=== PATIENT | female | born 1930 | race Caucasian/White ===

== ENCOUNTER 2016-10-10 10:00 | Emergency (ER) | payer MEDICARE, OTHER ==
[~2016-10-10 10:00] MED LIST: ALEVE220 MG PO; ASAB PO; AZOR1 TA1 PO; BYSTOLIC10 MG PO; COSAMIN DS1 TAB PO; CRESTOR10 PO; GLUCCHONDR PO; LOM PO; METHIMAZOLE5 MG PO; MULTIPLE VIT PO; MULTIVITAMI1 PO; PEP20 PO; PEPCID COMPLETE PO; REFRESH OPH; REST15 PO; TAPAZOLE5 MG PO; TEKTURNA300 MG PO; TRIBENZOR 40-51 EACH PO; VOLTAREN1 % TOP; WELCHOL 625 MG625 MG PO
[2016-10-10 10:16] LABS: BASOPHILS 0.2 %; BASOPHILS ABSOLUTE 0.02 10/3/uL (0.0-0.16); EOSINOPHILS 0.6 %; EOSINOPHILS ABSOLUTE 0.06 10/3/uL (0.0-0.53); ER CBC TAT 0 Hrs 09 Mins; HEMOGLOBIN 10.6 g/dL (12.0-16.0); IMMATURE GRANULOCYTES 1.2 %; LYMPHOCYTES 7.6 %; MEAN CORPUS HGB CONC 33.4 g/dL (32.0-36.0); MEAN CORPUSCULAR HEMOGLOB 34.1 pg (26.0-34.0); MEAN CORPUSCULAR VOLUME 101.9 fL (80-100); MEAN PLATELET VOLUME 9.4 fL (9.2-13.0); MONOCYTES 4.7 %; MONOCYTES ABSOLUTE 0.49 10/3/uL (0.21-1.20); NEUTROPHILS 85.7 %; NEUTROPHILS ABSOLUTE 8.99 10/3/uL (2.02-8.40); PLATELET COUNT 194 10/3/uL (150-400); RBC DISTRIBUTION WIDTH 13.2 % (12.0-16.0); WHITE BLOOD CELLS 10.5 10/3/uL (4.5-10.5)
[2016-10-10 10:24] LABS: HEMATOCRIT 31.7 % (36.0-48.0); IMMATURE GRANULOCYTES ABSOLUTE 0.13 10/3/uL (0.0-0.11); MANUAL DIFF NO %; RED CELL COUNT 3.11 10/6/uL (4.0-5.6)
[2016-10-10 10:30] LABS: INFLUENZA A SCREEN NEGATIVE (NEGATIVE); INFLUENZA B SCREEN NEGATIVE (NEGATIVE)
[2016-10-10 10:31] LABS: A/G RATIO 0.9 (0.7-1.9); ALKALINE PHOSPHATASE 73 U/L (45-117); BUN (BLOOD UREA NITROGEN) 36 MG/DL (6-23); CALCIUM, SERUM 9.2 MG/DL (8.5-10.4); CHLORIDE, SERUM 107 MMOL/L (96-112); CO2 (CARBON DIOXIDE) 22 MMOL/L (24-34); CREATININE 1.28 MG/DL (0.55-1.02); GFR AFRICAN AMERICAN 44 ML/MIN (>=60); GFR NON AFRICAN AMERICAN 38 ML/MIN (>=60); GLOBULIN 3.4 G/DL (2.5-4.1); GLUCOSE, SERUM 105 MG/DL (60-99); POTASSIUM, SERUM 4.4 MMOL/L (3.5-5.3); SGOT(AST) 52 U/L (5-40); SGPT(ALT) 62 U/L (5-65); SODIUM, SERUM 143 MMOL/L (135-148); TOTAL BILIRUBIN 0.9 MG/DL (0-1.2); TOTAL PROTEIN 6.4 G/DL (6.0-8.5); TROPONIN I 0.02 NG/ML (<0.05)
[2016-10-10 10:36] LABS: ASCORBIC ACID (UR NOT ORDER) NEG (NEG); BILIRUBIN, URINE NEGATIVE (NEG); ER URINALYSIS TAT 0 Hrs 19 Mins; KETONE, URINE NEGATIVE (NEG); LEUKOCYTE ESTERASE(NOT OR NEG (NEG); NITRITE (URINE) NEG (NEG); WBC (NOT ORDERED) (RFLEX) 1 (0-5)
[2016-10-10 10:39] LABS: BAND NEUTROPHILS 18 %; ER DIFF TAT 0 Hrs 32 Mins; LYMPHOCYTES 6 %; LYMPHOCYTES ABSOLUTE (CALC) 0.63 10/3/uL (0.67-4.30); MACROCYTES 1+ (5-10/OIF) (0-5/OIF); MONOCYTES 3 %; MONOCYTES ABSOLUTE (CALC) 0.32 10/3/uL (0.21-1.20); NEUTROPHILS ABSOLUTE (CALC) 9.56 10/3/uL (2.02-8.40); PLATELET ESTIMATE ADQ (ADEQUATE); SEGMENTED NEUTROPHIL (0) 73 %; TOTAL NUCLEATED CELLS 100
[2016-10-10] MEDS ORDERED: 8 HOUR650 MG PO (11:47)
[2016-10-10] MEDS ORDERED: MULTIVIT/MIN PO (11:47)
[2016-10-10] MEDS ORDERED: ASAB PO (11:47)
[2016-10-10] MEDS ORDERED: BYSTOLIC20 MG PO (11:48)
[2016-10-10] MEDS ORDERED: GLUCCHONDR PO (11:48)
[2016-10-10] MEDS ORDERED: TRIBENZOR 40-11 EAC1 PO (11:48)
[2016-10-10] MEDS ORDERED: REST15 PO (11:49)
[2016-10-10] MEDS ORDERED: LIPITOR10 PO (11:49)
[2016-10-10] MEDS ORDERED: MURO1285% OPH (11:49)
[2016-10-10] MEDS ORDERED: LOM PO (11:49)
[2016-10-10] MEDS ORDERED: LOTEMAX OPH SUSP5 ML OPH (11:49)
[2017-01-27] MEDS ORDERED: LOVENOX40 SC (14:20)
[2017-01-27] MEDS ORDERED: NYS500UDL PO (14:21)
[2017-01-27] MEDS ORDERED: [UNRECOGNIZED DRUG - OTHER] TOP (14:23)
[2017-01-27] MEDS ORDERED: VANCO500 IV (14:24)
[2017-01-27] MEDS ORDERED: 8 HOUR650 MG PO (14:28)
[2017-01-27] MEDS ORDERED: MAALOX MAX PO (14:29)
[2017-01-27] MEDS ORDERED: NORV10 PO (14:30)
[2017-01-27] MEDS ORDERED: BEN25UDL PO (14:31)
[2017-01-27] MEDS ORDERED: KEPPRA500 PO (14:32)
[2017-01-27] MEDS ORDERED: KEPPRA250 PO (14:32)
[2017-01-27] MEDS ORDERED: MELA3 PO (14:33)
[2017-01-27] MEDS ORDERED: MOMUD PO (14:33)
[2017-01-27] MEDS ORDERED: MACROBID PO (14:34)
[2017-01-27] MEDS ORDERED: B1100 PO (14:35)
== END 2016-10-10 12:30 | disposition home or self-care (01) ==
LOC: ER 10:00
PROVIDERS: Hospitalist
DX: I13.2 Hypertensive heart and chronic kidney disease with heart failure and with stage 5 chronic kidney disease, or end stage renal disease (principal); I50.9 Heart failure, unspecified; N18.9 Chronic kidney disease, unspecified; F32.9 Major depressive disorder, single episode, unspecified; I25.10 Atherosclerotic heart disease of native coronary artery without angina pectoris; Z95.5 Presence of coronary angioplasty implant and graft; Z85.3 Personal history of malignant neoplasm of breast; Z90.710 Acquired absence of both cervix and uterus; Z91.041 Radiographic dye allergy status; Z88.0 Allergy status to penicillin; Z88.5 Allergy status to narcotic agent; Z88.8 Allergy status to other drugs, medicaments and biological substances; Z88.6 Allergy status to analgesic agent; Z79.82 Long term (current) use of aspirin; Z79.899 Other long term (current) drug therapy
CPT/HCPCS: 71010; 80053; 81001; 83880; 84484; 85025; 87040; 87804; 93005; 99285; A9270-GY

== ENCOUNTER 2016-10-16 16:34 | Inpatient (IN) | payer MEDICARE, OTHER ==
--- NOTE | ~2016-10-16 | HP ---
History And Physical [place] [address] [facility] [place]. [address] NAME: PATRICIA CLARK : 30 STATUS : ADM IN [facility]#: [id number] AGE: 86 ADM/REG DATE : 10/16/16 MR#: [id number] REPORT SERV DATE: 10/17/16 DICTATED BY: MARIA GUADALUPE TRAN DATE: 10/16/16 REPORT STATUS : Draft TRANSCRIBED BY: BILLY DATE: 10/16/16 DATE OF ADMISSION: 10/16/2016 CHIEF COMPLAINT: Dark stools and shortness of breath. Dark stools over the last few days with shortness of breath over the last 2 weeks. HISTORY OF PRESENT ILLNESS: The patient is an 86-year-old female with past medical history of coronary artery disease, CABG history, reflux, prior Clostridium difficile colitis with resultant colectomy and reversal, who presents after having shortness of breath over the last 2 weeks. Approximately, 1 week ago, came to the emergency room, was thought to be slightly volume overloaded and was given 3 doses of diuretics and then had resultant voluminous diarrhea. Diarrhea has continued and has returned into dark melenic-type stools. On arrival, the patient was noted to be hypotensive at 90s/50s and complaining of still continued shortness of breath, has still not resolved, and has had drop in her H and H from last week to this week. Symptoms of discomfort have been constant, moderate in severity. Epigastric pain that is dull, nonradiating, no nausea, fevers, headaches, but does have cold feeling and shortness of breath with exertion, which is improved at rest, but worsened with exertion, symptoms are still currently present, but she is still reporting has black watery stools. REVIEW OF SYSTEMS: GENERAL: No fevers, but does have chills. EYES: No eye pain or visual changes. ENT: No ear pain or congestion. NEURO: No headache or confusion, but mild dizziness. SKIN: No rashes or bruising. Does have dry skin. RESPIRATORY: Does have shortness of breath, dyspnea on exertion. No cough. CV: No chest pain or palpitations. GI: No nausea or vomiting. Does have diarrhea with dark stool and abdominal discomfort. : No dysuria or hematuria. MUSCULOSKELETAL: No myalgias, arthralgias, above baseline. ENDO: Slightly increased fatigue, no polyuria. HEME: No bleeding on skin or bruising. IMMUNOLOGIC: No rhinorrhea. PSYCH: No anxiety or confusion, but does have appropriate depression after recent loss of her . 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 Traumatic right ankle fracture with MRSA infection, coronary artery bypass in 2002, hypertension, lumbar degenerative changes, Graves disease, acalculous cholecystitis requiring cholecystectomy, breast cancer with resection, major depression. PAST SURGICAL HISTORY: Bilateral mastectomy, hysterectomy, coronary artery bypass, hemorrhoidectomy, colectomy, ileostomy with reversal cholecystectomy, right knee History And Physical [address] [address] NAME: PATRICIA CLARK : 30 STATUS : ADM IN [facility]#: [id number] AGE: 86 ADM/REG DATE : 10/16/16 MR#: [id number] REPORT SERV DATE: 10/17/16 DICTATED BY: MARIA GUADALUPE TRAN DATE: 10/16/16 REPORT STATUS : Draft TRANSCRIBED BY: BILLY DATE: 10/16/16 arthroplasty, right ankle surgery, left third digit incision and drainage. 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 No alcohol or illicits. Quit smoking in . Son at bedside. FAMILY HISTORY: Uterine cancer, hypertension. ALLERGIES: PENICILLINS, IV CONTRAST, CODEINE, TRAMADOL, ZYVOX. HOME MEDICATIONS: Tylenol, aspirin, Lipitor, Lomotil, glucosamine, Lotemax, multivitamin, Bystolic, Tribenzor, Claire, and Restoril. PHYSICAL EXAMINATION: VITAL SIGNS: The patient's blood pressure 95/82, improved to 120/70; temperature 98; pulse 77; respirations 16; and O2 sats 98%. GENERAL: Currently in no acute distress. Slightly pale, but well developed, well nourished. EYES: No scleral icterus. Pale conjunctivae. ENT: Slightly dry mucous membranes. Tongue midline. RESPIRATORY: Clear to auscultation in anterior lung mcginnis. Mild coarse breath sounds in bilateral lower lung mcginnis. No stridor. CV: Regular rate. No rubs. No pedal edema. No JVD. Capillary refill less than 2 seconds. GI: Soft, nontender although reports tenderness in epigastric. No reproducible tenderness or direct tenderness appreciated to light palpation. Slightly reproducible on deep palpation. Negative fluid wave. No hepatomegaly. : Deferred. MUSCULOSKELETAL: Moves all extremities x4. SKIN: Warm, dry. Pale with mild tenting. LYMPH: No cervical lymphadenopathy. No pedal edema. HEME: No bleeding or bruising. NEURO: Alert and oriented. Moves all extremities x4. PSYCH: Appropriate mood and affect. Tearful when talking about . EKG: Normal sinus rhythm with incomplete right bundle, rate 74, QTc of 441, T-wave inversions noted in prior EKG in May 2016 with right bundle branch block, also in 2016. However, no PVCs appreciated as previously noted. Echocardiogram: EF 60%, normal RV size, no regional wall motion. Mild left atrial enlargement. Aortic valve sclerosis without stenosis. Mild to moderate mitral and moderate tricuspid valve regurgitation. Trace pericardial effusion. PERTINENT LABS: CBC: WBC count 11.9, H and H 8.8 and 36.6, MCV 101.5, platelets 311, INR 1.1. CMP: Sodium 139, potassium 5.9, chloride 109, bicarb 19, BUN and creatinine 88 and 2.32, glucose 125, calcium 9.1. LFTs within normal limits. ASSESSMENT AND PLAN: History And Physical [address] [address] NAME: PATRICIA CLARK : 30 STATUS : ADM IN [facility]#: [id number] AGE: 86 ADM/REG DATE : 10/16/16 MR#: [id number] REPORT SERV DATE: 10/17/16 DICTATED BY: MARIA GUADALUPE TRAN DATE: 10/16/16 REPORT STATUS : Draft TRANSCRIBED BY: MODL DATE: 10/16/16 1. Gastrointestinal bleed. 2. Hypotension. 3. Above knee injury. 4. Dyspnea. 5. Right bundle branch block with metabolic acidosis. PLAN: 1. For GI bleed, PPI drip. Serial H and H. Does have complex GI history. We will ask Dr. Sinclair to evaluate positive diarrhea history, acute on chronic episodes, unclear if exacerbated by hypotension due to volume depletion. 2. Hypotension, clinically volume depleted, responded fairly quickly to low doses of IV fluids, did have symptomatic dizziness, which is slowly improving. We will hold blood pressure medications at this time and continue to reassess on cardiac TOE. ER has discussed case and has made ICU aware of the patient in the presence of GI bleed, hypotension, family also updated. 3. Above-knee injury. Stopped ERIC inhibitor or ARB and hydrochlorothiazide, has taken 3 doses of Lasix, presumptive volume overload with elevated BNP, but currently low blood pressure, could also be confounding factor and voluminous output with diarrhea, sees Dr. Pedraza, Nephrology, and as the patient has already contacted Dr. Pedraza's clinic this week, we will consult the presence of SHERYL for additional optimization although multifactorial component. We will continue to reassess. 4. Dyspnea x2 weeks, unclear. We will check flu, strep Legionella although anemic currently. Symptoms were occurring prior to this acute episode of anemia. 5. Right bundle branch block, chronic, follows with Dr. Fiore. 6. Metabolic acidosis. Check Tylenol, salicylate, and lactate levels. 7. Hyperkalemia. Calcium gluconate given in emergency room. Stop ARBs, DuoNebs, and monitor. No peaked T-waves appreciated. I did have supplemental potassium given earlier last week, which could be confounding factor. DDN/MODL Maria Guadalupe Tran MD / [phone]
--- NOTE | ~2016-10-16 | CN ---
Consultation Report [address]. [address] NAME: PATRICIA CLARK : 30 STATUS : ADM IN PAT#: [id number] AGE: 86 ADM/REG DATE : 10/16/16 MR#: [id number] REPORT SERV DATE: 10/17/16 DICTATED BY: EFREN MCALLISTER DATE: 10/17/16 REPORT STATUS : Draft TRANSCRIBED BY: MODL DATE: 10/17/16 CONSULTATION NOTE DATE OF CONSULTATION: 10/17/2016 HISTORY OF PRESENT ILLNESS: This is an 86-year-old white female, admitted with melena, anemia, and mild nausea. Hemoglobin AA dropped to 7, now has been given a unit of packed cells. Minimal abdominal discomfort. No GERD, no dysphagia. History of C diff with subtotal colectomy, she had initial colostomy that was reversed, history corner artery disease, status post CAB, history of hypertension, history of DJD, history of Graves disease, status post breast cancer. She has had cholecystectomy and hysterectomy. SOCIAL HISTORY: Negative EtOH or nicotine. FAMILY HISTORY: Negative for colon cancer. LABORATORY DATA: INR 1.1. Platelet count 311,000. PAST MEDICAL HISTORY: Colon polyps. PHYSICAL EXAMINATION: GENERAL: Elderly frail white female, alert. HEENT: Anicteric. NECK: Negative. CHEST: Clear to percussion. HEART: Regular rate and rhythm without murmur, rubs, or gallop. ABDOMEN: Soft and nontender at present. Bowel sounds active. EXTREMITIES/NEUROLOGIC: Grossly intact. ASSESSMENT: 1. Gastrointestinal bleed, dark stools, anemia, and nausea. 2. Acute kidney insufficiency. 3. Coronary disease status post CAB. 4. Hypertension. 5. Degenerative joint disease. 6. Graves disease. 7. History of breast cancer. SUGGESTION: 1. We will schedule for EGD. 2. Continue follow up H and Hs p.r.n. transfusions. 3. PPI drip. 4. We will follow with you. Thank your for the consultation. Consultation Report [address]. [address] NAME: PATRICIA CLARK : 30 STATUS : ADM IN PAT#: [id number] AGE: 86 ADM/REG DATE : 10/16/16 MR#: [id number] REPORT SERV DATE: 10/17/16 DICTATED BY: EFREN MCALLISTER DATE: 10/17/16 REPORT STATUS : Draft TRANSCRIBED BY: EMIRL DATE: 10/17/16 DC/BILLY Efren Mcallister M.D. / [id number] CC: Cindy Pollard M.D.
--- NOTE | ~2016-10-16 | IDS ---
Interim Discharge Summary [facility] [address] [place]. [address] NAME: PATRICIA CLARK : 30 STATUS : ADM IN [facility]#: [id number] AGE: 86 ADM/REG DATE : 10/16/16 MR#: [id number] REPORT SERV DATE: 10/22/16 DICTATED BY: DATE: REPORT STATUS : Draft TRANSCRIBED BY: MODL DATE: 10/22/16 ADMISSION DATE: 10/16/2016 DISCHARGE DATE: INTERIM DISCHARGE DIAGNOSES: 1. Acute gastrointestinal bleed with melena. 2. Acute blood loss anemia. 3. Dyspnea. 4. Acute kidney injury. 5. Urinary tract infection. 6. Malnutrition. 7. History of Clostridium difficile. 8. Right bundle-branch block, that is chronic. CONSULTING PHYSICIANS: Include Dr. Arpan Sinclair with Gastroenterology. IMAGIN. Portable chest x-ray is negative for acute cardiopulmonary process. 2. CT of the abdomen and pelvis which did not demonstrate any etiology for the patient's GI bleeding. PROCEDURES: The patient has a total of three upper endoscopies since admission, two performed by Dr. Arpan Sinclair, the first showing two ulcers in the duodenal bulb, they were crated, however, they were not bleeding at that time. During the second endoscopy, however, they were bleeding. It was very difficult for him to stop the bleeding. He has multiple methods including epinephrine injections, cauterization, and finally he placed two clips, which stopped the bleeding. The patient was returned to the floor. She did well for about 24 hours and then started having melena again with a decrease in her H and H. She was taken back to the endoscopy suite today with Dr. Colon who is on-call for Dr. Sinclair. She was unable to stop the bleeding. She placed four more clips, as well as injected with epinephrine and tried cauterization. None of the above worked, so the patient was sent to interventional radiology. She underwent a mesenteric arteriogram performed by Dr. Hernandez. He placed a sheath that successfully stopped the bleeding. For full H and P, please refer to Dr. Bunch's dictation on 10/16/2016. HOSPITAL COURSE: There was not much to add other than the interventions above. The patient has had multiple transfusions. She is receiving q.6 hour H and Hs. Transfusion parameters include one unit of packed red blood cells for hemoglobin less than 8 with two units of packed red blood cells for hemoglobin less than 7. Her last hemoglobin prior to transfer to CV ICU was 8.4 this morning. Thank you to the envelope cutter for taking care of this patient during her ICU stay. We will resume care when she is transferred to the floor. Interim Discharge Summary [place] [address] [place]. [address] NAME: PATRICIA CLARK : 30 STATUS : ADM IN [facility]#: [id number] AGE: 86 ADM/REG DATE : 10/16/16 MR#: [id number] REPORT SERV DATE: 10/22/16 DICTATED BY: DATE: REPORT STATUS : Draft TRANSCRIBED BY: MODDelroy DATE: 10/22/16 ELIF/BILLY Hua Kaufman NP / [id number] CC: MD Rubén Melissa M.D.
--- NOTE | ~2016-10-16 | DS ---
Discharge Summary [facility] [address] [place]. [address] NAME: PATRICIA CLARK : 30 STATUS : DIS IN PAT#: [id number] AGE: 86 ADM/REG DATE : 10/16/16 MR#: [id number] REPORT SERV DATE: 10/29/16 DICTATED BY: ARIES BYRD DATE: 10/28/16 REPORT STATUS : Draft TRANSCRIBED BY: MODL DATE: 10/28/16 ADMISSION DATE: 10/16/2016 DISCHARGE DATE: 10/28/2016 PRINCIPAL DIAGNOSIS: Acute upper gastrointestinal bleed secondary to duodenal ulcer with acute blood loss anemia. SECONDARY DIAGNOSES: Acute kidney injury, hypotension due to hypovolemic shock, transient metabolic acidosis, anasarca, and hypoalbuminemia. PRESENT ILLNESS: Please see Dr. Bunch's dictation on 10/16/2016. HOSPITAL COURSE: Please see Hua Kaufman' interim summary on 10/22/2016. SUBSEQUENT HOSPITAL COURSE: The patient had to be transferred to the ICU for mesenteric angiography for embolization of the bleeding duodenal vessel. This was successful. She was in the ICU for a couple of days. She was volume resuscitated, was able to be transferred to the floor where she tolerated physical therapy well. Her p.o. intake improved. She still had issues with anasarca due to hypoalbuminemia. This was felt to be secondary to her acute illness, not to malnutrition per se, as intake actually had improved and she had lost no weight prior to her acute illness. She was able to be transmitted to rehabilitation center at [facility] on 10/28/2016 where she anticipated that she would do well. Iron studies have been satisfactory. Blood counts will be checked periodically. She will follow up with Dr. Rubén Wheat following discharge and Dr. Arpan Sinclair in six to eight weeks. TIME SPENT: Greater than 30 minutes were spent on the care of this patient on discharge planning on discharge day. GERALD/BILLY Aries Byrd M.D. / [id number] CC: Cindy Lei M.D.
--- NOTE | ~2016-10-16 | EGD ---
EGD REPORT [facility] [address] [place] [address] NAME: PATRICIA BACON : 30 STATUS : ADM IN PAT#: [id number] AGE: 86 ADM/REG DATE : 10/16/16 MR#: [id number] REPORT SERV DATE: 10/19/16 DICTATED BY: EFREN MCALLISTER DATE: 10/19/16 REPORT STATUS : Draft [facility]: [facility] DATE: 10/19/16 Endoscopy Center Patient Name: Patricia Bacon Date of : 1930 Attending MD: EFREN MCALLISTER MD Procedure Date No Time: 10/19/2016 Procedure: Upper GI endoscopy Indications: Anemia, Melena Medicines: General Anesthesia Complications: No immediate complications. Procedure: After obtaining informed consent, the endoscope was passed under direct vision. Throughout the procedure, the patient's blood pressure, pulse, and oxygen saturations were monitored continuously. The GIF H190 [id number] was introduced through the mouth, and advanced to the third part of duodenum. The upper GI endoscopy was accomplished without difficulty. The patient tolerated the procedure. Findings: The examined esophagus was normal. Red blood was found in the gastric fundus, in the gastric body and in the gastric antrum. Two spurting cratered duodenal ulcers with a visible vessel were found in the duodenal bulb. The largest lesion was 9 mm in largest dimension. Area was successfully injected with 10 mL of a 1:10,000 solution of epinephrine for hemostasis. Coagulation for hemostasis using bipolar probe was unsuccessful. Two hemostatic clips were successfully placed. There was no bleeding at the end of the procedure. Impression: - Normal esophagus. - Red blood in the gastric antrum, in the gastric fundus and in the gastric body. - Multiple duodenal ulcers spurting blood. Injected. Treatment not successful. Clips were placed. Recommendation: - NPO. - Continue present medications. Procedure Code(s): --- Professional --- 06742, Esophagogastroduodenoscopy, flexible, transoral; with control of bleeding, any method Diagnosis Code(s): --- Professional --- K92.2, Gastrointestinal hemorrhage, unspecified EGD REPORT [facility] [address] [place], [place] [address]. [address] NAME: PATRICIA BACON : 30 STATUS : ADM IN [facility]#: [id number] AGE: 86 ADM/REG DATE : 10/16/16 MR#: [id number] REPORT SERV DATE: 10/19/16 DICTATED BY: EFREN MCALLISTER. DATE: 10/19/16 REPORT STATUS : Draft TRANSCRIBED BY: [employer] DATE: 10/19/16 K26.4, Chronic or unspecified duodenal ulcer with hemorrhage D64.9, Anemia, unspecified K92.1, Melena CPT copyright 2013 [employer]. All rights reserved. The codes documented in this report are preliminary and upon preparation plant repairer review may be revised to meet current compliance requirements. EFREN MCALLISTER MD 10/19/2016 3:26 PM This report has been signed electronically. Number of Addenda: 0 Note Initiated On: 10/19/2016 2:34 PM Scope Withdrawal Time 0 hours 0 minutes 0 seconds [address] [place] [address]
--- NOTE | ~2016-10-16 | EGD ---
EGD REPORT [facility] [address] [address] NAME: PATRICIA BACON : 30 STATUS : ADM IN PAT#: [id number] AGE: 86 ADM/REG DATE : 10/16/16 MR#: [id number] REPORT SERV DATE: 10/17/16 DICTATED BY: EFREN MCALLISTER DATE: 10/17/16 REPORT STATUS : Draft TRANSCRIBED BY: [facility] DATE: 10/17/16 Endoscopy Center Patient Name: Patricia Bacon Date of : 1930 Attending MD: EFREN MCALLISTER MD Procedure Date No Time: 10/17/2016 Procedure: Upper GI endoscopy Indications: Anemia, Melena Medicines: as per anesthesia Complications: No immediate complications. Procedure: Pre-Anesthesia Assessment: - ASA Grade Assessment: III - A patient with severe systemic disease. After obtaining informed consent, the endoscope was passed under direct vision. Throughout the procedure, the patient's blood pressure, pulse, and oxygen saturations were monitored continuously. The GIF H190 [id number] was introduced through the mouth, and advanced to the third part of duodenum. The upper GI endoscopy was accomplished without difficulty. The patient tolerated the procedure. Findings: The examined esophagus was normal. The entire examined stomach was normal. The cardia and gastric fundus were normal on retroflexion. Two cratered duodenal ulcers were found in the duodenal bulb. The largest lesion was 9 mm in largest dimension. Impression: - Normal esophagus. - Normal stomach. - Multiple duodenal ulcers. Recommendation: - Continue present medications. Procedure Code(s): --- Professional --- 03563, Esophagogastroduodenoscopy, flexible, transoral; diagnostic, including collection of specimen(s) by brushing or washing, when performed (separate procedure) Diagnosis Code(s): --- Professional --- K26.9, Duodenal ulcer, unspecified as acute or chronic, without hemorrhage or perforation D64.9, Anemia, unspecified K92.1, Melena EGD REPORT [facility] [address] [place]. [address] NAME: PATRICIA BACON : 30 STATUS : ADM IN [facility]#: [id number] AGE: 86 ADM/REG DATE : 10/16/16 MR#: [id number] REPORT SERV DATE: 10/17/16 DICTATED BY: EFREN MCALLISTER. DATE: 10/17/16 REPORT STATUS : Draft TRANSCRIBED BY: [employer] DATE: 10/17/16 CPT copyright 2013 [employer]. All rights reserved. The codes documented in this report are preliminary and upon medical coder review may be revised to meet current compliance requirements. EFREN MCALLISTER MD 10/17/2016 4:14 PM This report has been signed electronically. Number of Addenda: 0 Note Initiated On: 10/17/2016 3:37 PM Scope Withdrawal Time 0 hours 0 minutes 0 seconds [address] [facility] [place] [address]
[2016-10-16 15:10] LABS: BASOPHILS 0.3 %; BASOPHILS ABSOLUTE 0.03 10/3/uL (0.0-0.16); EOSINOPHILS 0.7 %; EOSINOPHILS ABSOLUTE 0.08 10/3/uL (0.0-0.53); ER CBC TAT 0 Hrs 03 Mins; HEMOGLOBIN 8.8 g/dL (12.0-16.0); IMMATURE GRANULOCYTES ABSOLUTE 0.59 10/3/uL (0.0-0.11); LYMPHOCYTES 16.8 %; MEAN CORPUS HGB CONC 33.1 g/dL (32.0-36.0); MEAN CORPUSCULAR HEMOGLOB 33.6 pg (26.0-34.0); MEAN CORPUSCULAR VOLUME 101.5 fL (80-100); MEAN PLATELET VOLUME 9.3 fL (9.2-13.0); MONOCYTES 5.7 %; MONOCYTES ABSOLUTE 0.68 10/3/uL (0.21-1.20); NEUTROPHILS 71.5 %; NEUTROPHILS ABSOLUTE 8.52 10/3/uL (2.02-8.40); RBC DISTRIBUTION WIDTH 13.4 % (12.0-16.0); RED CELL COUNT 2.62 10/6/uL (4.0-5.6); WHITE BLOOD CELLS 11.9 10/3/uL (4.5-10.5)
[2016-10-16 15:15] LABS: HEMATOCRIT 26.6 % (36.0-48.0); PLATELET COUNT 311 10/3/uL (150-400)
[2016-10-16 15:16] LABS: MANUAL DIFF NO %
[2016-10-16 15:23] LABS: INTERNATIONAL NORMAL RATI 1.1 UNITS (-); PARTIAL THROMBO TIME 25.2 SEC (22.5-37.2)
[2016-10-16 15:25] LABS: A/G RATIO 0.8 (0.7-1.9); ALBUMIN 2.5 G/DL (3.5-5.0); ALKALINE PHOSPHATASE 77 U/L (45-117); BUN (BLOOD UREA NITROGEN) 88 MG/DL (6-23); CALCIUM, SERUM 9.1 MG/DL (8.5-10.4); CHLORIDE, SERUM 109 MMOL/L (96-112); CO2 (CARBON DIOXIDE) 19 MMOL/L (24-34); CREATININE 2.32 MG/DL (0.55-1.02); GFR AFRICAN AMERICAN 21 ML/MIN (>=60); GFR NON AFRICAN AMERICAN 18 ML/MIN (>=60); GLOBULIN 3.3 G/DL (2.5-4.1); GLUCOSE, SERUM 125 MG/DL (60-99); POTASSIUM, SERUM 5.9 MMOL/L (3.5-5.3); SGOT(AST) 33 U/L (5-40); SGPT(ALT) 54 U/L (5-65); SODIUM, SERUM 139 MMOL/L (135-148); TOTAL BILIRUBIN 0.3 MG/DL (0-1.2); TOTAL PROTEIN 5.8 G/DL (6.0-8.5)
[2016-10-16 15:36] LABS: BAND NEUTROPHILS 2 %; ER DIFF TAT 0 Hrs 29 Mins; LYMPHOCYTES 12 %; LYMPHOCYTES ABSOLUTE (CALC) 1.43 10/3/uL (0.67-4.30); MONOCYTES 4 %; MONOCYTES ABSOLUTE (CALC) 0.48 10/3/uL (0.21-1.20); SEGMENTED NEUTROPHIL (0) 82 %; TOTAL NUCLEATED CELLS 100
[2016-10-16 15:38] LABS: POLYCHROMASIA 1+ (2-5/OIF) (0-1/OIF)
[2016-10-16 15:45] LABS: PLATELET ESTIMATE ADQ (ADEQUATE); POIKILOCYTOSIS 1+ (5-10/OIF) (0-5/OIF)
[2016-10-16 15:47] LABS: MACROCYTES 1+ (5-10/OIF) (0-5/OIF)
[~2016-10-16 16:34] MED LIST changes: +8 HOUR650 MG PO; +BYSTOLIC20 MG PO; +LIPITOR10 PO; +LOTEMAX OPH SUSP5 ML OPH; +MULTIVIT/MIN PO; +MURO1285% OPH; +TRIBENZOR 40-11 EAC1 PO
[2016-10-16 22:54] LABS: HEMATOCRIT 23.9 % (36.0-48.0); HEMOGLOBIN 7.8 g/dL (12.0-16.0)
[2016-10-16 23:17] LABS: CALCIUM, SERUM 8.5 MG/DL (8.5-10.4); CHLORIDE, SERUM 114 MMOL/L (96-112); CO2 (CARBON DIOXIDE) 16 MMOL/L (24-34); CREATININE 1.99 MG/DL (0.55-1.02); GFR AFRICAN AMERICAN 26 ML/MIN (>=60); GFR NON AFRICAN AMERICAN 22 ML/MIN (>=60); GLUCOSE, SERUM 148 MG/DL (60-99); POTASSIUM, SERUM 5.3 MMOL/L (3.5-5.3); SODIUM, SERUM 142 MMOL/L (135-148); TROPONIN I <0.02 NG/ML (<0.05)
[2016-10-16 23:19] LABS: BUN (BLOOD UREA NITROGEN) 76 MG/DL (6-23); ULTRASENSITIVE TSH 0.637 MCIU/ML (0.358-3.740)
[2016-10-16 23:57] LABS: PROCALCITONIN 0.25 ng/mL (<0.5)
[2016-10-17 07:23] LABS: ASCORBIC ACID (UR NOT ORDER) NEG (NEG); BILIRUBIN, URINE NEGATIVE (NEG); KETONE, URINE NEGATIVE (NEG); LEUKOCYTE ESTERASE(NOT OR LARGE (NEG)
[2016-10-17 07:30] LABS: WBC (NOT ORDERED) (RFLEX) > 182 (0-5)
[2016-10-17 07:33] LABS: HEMOGLOBIN 7.1 g/dL (12.0-16.0); MANUAL DIFF YES %; MEAN CORPUS HGB CONC 32.3 g/dL (32.0-36.0); MEAN CORPUSCULAR VOLUME 102.3 fL (80-100); PLATELET COUNT 215 10/3/uL (150-400); RBC DISTRIBUTION WIDTH 13.6 % (12.0-16.0); RED CELL COUNT 2.15 10/6/uL (4.0-5.6); WHITE BLOOD CELLS 10.9 10/3/uL (4.5-10.5)
[2016-10-17 07:50] LABS: A/G RATIO 0.8 (0.7-1.9); ACETAMINOPHEN LEVEL (TYLENOL) 3.5 MCG/ML (10.0-20.0); ALBUMIN 2.2 G/DL (3.5-5.0); BUN (BLOOD UREA NITROGEN) 64 MG/DL (6-23); CALCIUM, SERUM 8.4 MG/DL (8.5-10.4); CHLORIDE, SERUM 115 MMOL/L (96-112); CO2 (CARBON DIOXIDE) 18 MMOL/L (24-34); CREATININE 1.66 MG/DL (0.55-1.02); GFR AFRICAN AMERICAN 32 ML/MIN (>=60); GFR NON AFRICAN AMERICAN 28 ML/MIN (>=60); GLOBULIN 2.9 G/DL (2.5-4.1); POTASSIUM, SERUM 5.3 MMOL/L (3.5-5.3); SGOT(AST) 27 U/L (5-40); SGPT(ALT) 42 U/L (5-65); SODIUM, SERUM 143 MMOL/L (135-148); TOTAL BILIRUBIN 0.4 MG/DL (0-1.2); TOTAL PROTEIN 5.1 G/DL (6.0-8.5); TROPONIN I <0.02 NG/ML (<0.05)
[2016-10-17 07:51] LABS: ALKALINE PHOSPHATASE 65 U/L (45-117); GLUCOSE, SERUM 94 MG/DL (60-99); SALICYLATE < 1.7 MG/DL (-)
[2016-10-17 07:57] LABS: BAND NEUTROPHILS 3 %; IMMATURE GRANS ABSOLUTE (CALC) 0.11 10/3/uL (0.0-0.11); LYMPHOCYTES 16 %; LYMPHOCYTES ABSOLUTE (CALC) 1.74 10/3/uL (0.67-4.30); METAMYELOCYTES 1 %; MONOCYTES 4 %; MONOCYTES ABSOLUTE (CALC) 0.44 10/3/uL (0.21-1.20); NEUTROPHILS ABSOLUTE (CALC) 8.61 10/3/uL (2.02-8.40); SEGMENTED NEUTROPHIL (0) 76 %; TOTAL NUCLEATED CELLS 100
[2016-10-17 07:58] LABS: PLATELET ESTIMATE ADQ (ADEQUATE); STOMATOCYTES 1+ (3-10/OIF) (0-2/OIF); TEARDROP SHAPED RBCS FEW (3-10/OIF)
[2016-10-17 18:55] LABS: HEMATOCRIT 27.9 % (36.0-48.0); HEMOGLOBIN 8.7 g/dL (12.0-16.0)
[2016-10-18 02:14] LABS: HEMATOCRIT 26.6 % (36.0-48.0); HEMOGLOBIN 9.1 g/dL (12.0-16.0)
[2016-10-18 09:05] LABS: HEMOGLOBIN 7.7 g/dL (12.0-16.0)
[2016-10-18 15:46] LABS: HEMOGLOBIN 9.6 g/dL (12.0-16.0)
[2016-10-18 20:42] LABS: HEMATOCRIT 28.2 % (36.0-48.0); HEMOGLOBIN 9.6 g/dL (12.0-16.0)
[2016-10-19 01:43] LABS: HEMOGLOBIN 8.5 g/dL (12.0-16.0); MANUAL DIFF YES %; MEAN CORPUSCULAR HEMOGLOB 30.2 pg (26.0-34.0); MEAN PLATELET VOLUME 9.4 fL (9.2-13.0); PLATELET COUNT 130 10/3/uL (150-400); RBC DISTRIBUTION WIDTH 20.4 % (12.0-16.0); RED CELL COUNT 2.81 10/6/uL (4.0-5.6); WHITE BLOOD CELLS 11.9 10/3/uL (4.5-10.5)
[2016-10-19 01:55] LABS: BUN (BLOOD UREA NITROGEN) 61 MG/DL (6-23); CALCIUM, SERUM 7.7 MG/DL (8.5-10.4); CHLORIDE, SERUM 116 MMOL/L (96-112); CO2 (CARBON DIOXIDE) 16 MMOL/L (24-34); CREATININE 1.36 MG/DL (0.55-1.02); GFR AFRICAN AMERICAN 41 ML/MIN (>=60); GFR NON AFRICAN AMERICAN 35 ML/MIN (>=60); GLUCOSE, SERUM 118 MG/DL (60-99); POTASSIUM, SERUM 5.1 MMOL/L (3.5-5.3); SODIUM, SERUM 143 MMOL/L (135-148)
[2016-10-19 02:40] LABS: ANISOCYTOSIS 1+ (5-10/OIF) (0-5/OIF); BAND NEUTROPHILS 2 %; EOSINOPHILS 1 %; EOSINOPHILS ABSOLUTE (CALC) 0.12 10/3/uL (0.0-0.53); IMMATURE GRANS ABSOLUTE (CALC) 0.36 10/3/uL (0.0-0.11); LYMPHOCYTES 17 %; LYMPHOCYTES ABSOLUTE (CALC) 2.02 10/3/uL (0.67-4.30); METAMYELOCYTES 2 %; MONOCYTES 6 %; MONOCYTES ABSOLUTE (CALC) 0.71 10/3/uL (0.21-1.20); MYELOCYTES 1 %; NEUTROPHILS ABSOLUTE (CALC) 8.69 10/3/uL (2.02-8.40); PLATELET ESTIMATE SLT DEC (ADEQUATE); SEGMENTED NEUTROPHIL (0) 71 %; TOTAL NUCLEATED CELLS 100
[2016-10-19 08:50] LABS: HEMATOCRIT 22.7 % (36.0-48.0); HEMOGLOBIN 7.3 g/dL (12.0-16.0)
[2016-10-19 12:35] LABS: HEMATOCRIT 21.2 % (36.0-48.0)
[2016-10-19 12:36] LABS: HEMOGLOBIN 6.8 g/dL (12.0-16.0)
[2016-10-20 02:10] LABS: MEAN CORPUS HGB CONC 32.4 g/dL (32.0-36.0); MEAN CORPUSCULAR HEMOGLOB 28.9 pg (26.0-34.0); MEAN CORPUSCULAR VOLUME 89.3 fL (80-100); MEAN PLATELET VOLUME 9.9 fL (9.2-13.0); NUCLEATED RED BLOOD CELLS 2.6 /100WBC (0-0); PLATELET COUNT 109 10/3/uL (150-400); RBC DISTRIBUTION WIDTH 17.4 % (12.0-16.0)
[2016-10-20 02:17] LABS: HEMATOCRIT 38.3 % (36.0-48.0); HEMOGLOBIN 12.4 g/dL (12.0-16.0); RED CELL COUNT 4.29 10/6/uL (4.0-5.6); WHITE BLOOD CELLS 16.7 10/3/uL (4.5-10.5)
[2016-10-20 02:18] LABS: MANUAL DIFF YES %
[2016-10-20 02:28] LABS: CALCIUM, SERUM 8.4 MG/DL (8.5-10.4); CHLORIDE, SERUM 119 MMOL/L (96-112); GFR AFRICAN AMERICAN 31 ML/MIN (>=60); GFR NON AFRICAN AMERICAN 27 ML/MIN (>=60); GLUCOSE, SERUM 129 MG/DL (60-99); PHOSPHORUS, SERUM 3.3 MG/DL (2.5-4.5); POTASSIUM, SERUM 5.4 MMOL/L (3.5-5.3); SODIUM, SERUM 145 MMOL/L (135-148)
[2016-10-20 02:29] LABS: CO2 (CARBON DIOXIDE) 14 MMOL/L (24-34)
[2016-10-20 02:30] LABS: BUN (BLOOD UREA NITROGEN) 80 MG/DL (6-23)
[2016-10-20 03:10] LABS: BAND NEUTROPHILS 1 %; BASOPHILS 1 %; BASOPHILS ABSOLUTE (CALC) 0.17 10/3/uL (0.0-0.16); EOSINOPHILS 1 %; EOSINOPHILS ABSOLUTE (CALC) 0.17 10/3/uL (0.0-0.53); IMMATURE GRANS ABSOLUTE (CALC) 0.67 10/3/uL (0.0-0.11); LYMPHOCYTES 8 %; LYMPHOCYTES ABSOLUTE (CALC) 1.34 10/3/uL (0.67-4.30); METAMYELOCYTES 2 %; MONOCYTES 4 %; MONOCYTES ABSOLUTE (CALC) 0.67 10/3/uL (0.21-1.20); MYELOCYTES 2 %; NEUTROPHILS ABSOLUTE (CALC) 13.69 10/3/uL (2.02-8.40); PLATELET ESTIMATE SLT DEC (ADEQUATE); SEGMENTED NEUTROPHIL (0) 81 %; TOTAL NUCLEATED CELLS 100
[2016-10-20 03:11] LABS: ANISOCYTOSIS 1+ (5-10/OIF) (0-5/OIF); POLYCHROMASIA 1+ (2-5/OIF) (0-1/OIF); TEARDROP SHAPED RBCS OCC (0-2/OIF)
[2016-10-20 03:12] LABS: GIANT PLATELET RARE
[2016-10-20 08:09] LABS: HEMOGLOBIN 11.3 g/dL (12.0-16.0); MEAN CORPUSCULAR HEMOGLOB 29.1 pg (26.0-34.0); MEAN PLATELET VOLUME 9.8 fL (9.2-13.0); PLATELET COUNT 113 10/3/uL (150-400); RBC DISTRIBUTION WIDTH 17.3 % (12.0-16.0); RED CELL COUNT 3.88 10/6/uL (4.0-5.6); WHITE BLOOD CELLS 14.2 10/3/uL (4.5-10.5)
[2016-10-20 08:11] LABS: HEMATOCRIT 32.9 % (36.0-48.0); MEAN CORPUS HGB CONC 34.3 g/dL (32.0-36.0); MEAN CORPUSCULAR VOLUME 84.8 fL (80-100)
[2016-10-20 08:13] LABS: MANUAL DIFF YES %
[2016-10-20 08:21] LABS: CALCIUM, SERUM 8.1 MG/DL (8.5-10.4); CHLORIDE, SERUM 117 MMOL/L (96-112); CREATININE 1.53 MG/DL (0.55-1.02); GFR AFRICAN AMERICAN 35 ML/MIN (>=60); GFR NON AFRICAN AMERICAN 30 ML/MIN (>=60); GLUCOSE, SERUM 134 MG/DL (60-99); PHOSPHORUS, SERUM 2.9 MG/DL (2.5-4.5); POTASSIUM, SERUM 4.5 MMOL/L (3.5-5.3); SODIUM, SERUM 144 MMOL/L (135-148)
[2016-10-20 08:22] LABS: BUN (BLOOD UREA NITROGEN) 73 MG/DL (6-23); CO2 (CARBON DIOXIDE) 17 MMOL/L (24-34)
[2016-10-20 09:08] LABS: BAND NEUTROPHILS 3 %; IMMATURE GRANS ABSOLUTE (CALC) 0.28 10/3/uL (0.0-0.11); LYMPHOCYTES 11 %; LYMPHOCYTES ABSOLUTE (CALC) 1.56 10/3/uL (0.67-4.30); METAMYELOCYTES 2 %; MONOCYTES 2 %; MONOCYTES ABSOLUTE (CALC) 0.28 10/3/uL (0.21-1.20); NEUTROPHILS ABSOLUTE (CALC) 12.07 10/3/uL (2.02-8.40); SEGMENTED NEUTROPHIL (0) 82 %; TOTAL NUCLEATED CELLS 100
[2016-10-20 09:09] LABS: ANISOCYTOSIS 1+ (5-10/OIF) (0-5/OIF); PLATELET ESTIMATE SLT DEC (ADEQUATE)
[2016-10-20 14:52] LABS: HEMOGLOBIN 10.6 g/dL (12.0-16.0)
[2016-10-20 17:55] LABS: A/G RATIO 1.1 (0.7-1.9); ALBUMIN 2.3 G/DL (3.5-5.0); ALKALINE PHOSPHATASE 44 U/L (45-117); GLOBULIN 2.1 G/DL (2.5-4.1); SGOT(AST) 31 U/L (5-40); SGPT(ALT) 30 U/L (5-65); TOTAL BILIRUBIN 0.4 MG/DL (0-1.2); TOTAL PROTEIN 4.4 G/DL (6.0-8.5)
[2016-10-20 22:34] LABS: ASCORBIC ACID (UR NOT ORDER) NEG (NEG); BILIRUBIN, URINE NEGATIVE (NEG); KETONE, URINE NEGATIVE (NEG); LEUKOCYTE ESTERASE(NOT OR SMALL (NEG); WBC (NOT ORDERED) (RFLEX) 9 (0-5)
[2016-10-20 22:47] LABS: CREATININE, URINE 58.9 MG/DL
[2016-10-21 05:41] LABS: BASOPHILS 0.3 %; BASOPHILS ABSOLUTE 0.03 10/3/uL (0.0-0.16); EOSINOPHILS 1.3 %; EOSINOPHILS ABSOLUTE 0.14 10/3/uL (0.0-0.53); HEMOGLOBIN 9.3 g/dL (12.0-16.0); IMMATURE GRANULOCYTES ABSOLUTE 0.32 10/3/uL (0.0-0.11); LYMPHOCYTES 15.2 %; LYMPHOCYTES ABSOLUTE 1.62 10/3/uL (0.67-4.30); MEAN CORPUS HGB CONC 33.9 g/dL (32.0-36.0); MEAN CORPUSCULAR HEMOGLOB 29.2 pg (26.0-34.0); MEAN CORPUSCULAR VOLUME 85.9 fL (80-100); MEAN PLATELET VOLUME 10.2 fL (9.2-13.0); MONOCYTES 5.5 %; MONOCYTES ABSOLUTE 0.58 10/3/uL (0.21-1.20); NEUTROPHILS 74.7 %; NEUTROPHILS ABSOLUTE 7.94 10/3/uL (2.02-8.40); NUCLEATED RED BLOOD CELLS 0.6 /100WBC (0-0); PLATELET COUNT 110 10/3/uL (150-400); RBC DISTRIBUTION WIDTH 17.5 % (12.0-16.0); RED CELL COUNT 3.19 10/6/uL (4.0-5.6); WHITE BLOOD CELLS 10.6 10/3/uL (4.5-10.5)
[2016-10-21 05:46] LABS: HEMATOCRIT 27.4 % (36.0-48.0); MANUAL DIFF NO %
[2016-10-21 06:02] LABS: CALCIUM, SERUM 7.4 MG/DL (8.5-10.4); CHLORIDE, SERUM 118 MMOL/L (96-112); CO2 (CARBON DIOXIDE) 18 MMOL/L (24-34); CREATININE 1.06 MG/DL (0.55-1.02); GFR AFRICAN AMERICAN 55 ML/MIN (>=60); GFR NON AFRICAN AMERICAN 48 ML/MIN (>=60); SODIUM, SERUM 146 MMOL/L (135-148)
[2016-10-21 06:06] LABS: BUN (BLOOD UREA NITROGEN) 43 MG/DL (6-23); GLUCOSE, SERUM 88 MG/DL (60-99); PHOSPHORUS, SERUM 1.9 MG/DL (2.5-4.5); POTASSIUM, SERUM 3.5 MMOL/L (3.5-5.3)
[2016-10-21 17:28] LABS: HEMATOCRIT 26.6 % (36.0-48.0); HEMOGLOBIN 8.9 g/dL (12.0-16.0)
[2016-10-21 21:33] LABS: HEMATOCRIT 22.8 % (36.0-48.0)
[2016-10-22 06:50] LABS: HEMATOCRIT 24.3 % (36.0-48.0); HEMOGLOBIN 8.4 g/dL (12.0-16.0); MEAN CORPUS HGB CONC 34.6 g/dL (32.0-36.0); MEAN CORPUSCULAR HEMOGLOB 29.8 pg (26.0-34.0); MEAN CORPUSCULAR VOLUME 86.2 fL (80-100); MEAN PLATELET VOLUME 10.6 fL (9.2-13.0); PLATELET COUNT 102 10/3/uL (150-400); RBC DISTRIBUTION WIDTH 16.1 % (12.0-16.0); RED CELL COUNT 2.82 10/6/uL (4.0-5.6); WHITE BLOOD CELLS 12.8 10/3/uL (4.5-10.5)
[2016-10-22 06:59] LABS: INTERNATIONAL NORMAL RATI 1.3 UNITS (-)
[2016-10-22 07:01] LABS: PROTIME (NOT ORD) 16.5 SEC (12.0-14.5)
[2016-10-22 07:02] LABS: MANUAL DIFF YES %
[2016-10-22 07:15] LABS: BAND NEUTROPHILS 9 %; LYMPHOCYTES 12 %; LYMPHOCYTES ABSOLUTE (CALC) 1.54 10/3/uL (0.67-4.30); MONOCYTES 3 %; MONOCYTES ABSOLUTE (CALC) 0.38 10/3/uL (0.21-1.20); NEUTROPHILS ABSOLUTE (CALC) 10.88 10/3/uL (2.02-8.40); PLATELET ESTIMATE SLT DEC (ADEQUATE); RBC MORPHOLOGY NORM (NORMAL); SEGMENTED NEUTROPHIL (0) 76 %; TOTAL NUCLEATED CELLS 100
[2016-10-22 07:29] LABS: BUN (BLOOD UREA NITROGEN) 46 MG/DL (6-23); CALCIUM, SERUM 7.6 MG/DL (8.5-10.4); CHLORIDE, SERUM 116 MMOL/L (96-112); CO2 (CARBON DIOXIDE) 16 MMOL/L (24-34); CREATININE 1.16 MG/DL (0.55-1.02); GFR AFRICAN AMERICAN 49 ML/MIN (>=60); GFR NON AFRICAN AMERICAN 43 ML/MIN (>=60); SODIUM, SERUM 145 MMOL/L (135-148)
[2016-10-22 07:30] LABS: GLUCOSE, SERUM 131 MG/DL (60-99); PHOSPHORUS, SERUM 2.7 MG/DL (2.5-4.5); POTASSIUM, SERUM 4.5 MMOL/L (3.5-5.3)
[2016-10-22 17:48] LABS: HEMATOCRIT 19.7 % (36.0-48.0)
[2016-10-23 03:43] LABS: BASOPHILS 0.2 %; BASOPHILS ABSOLUTE 0.03 10/3/uL (0.0-0.16); EOSINOPHILS 0 %; IMMATURE GRANULOCYTES 2.5 %; IMMATURE GRANULOCYTES ABSOLUTE 0.49 10/3/uL (0.0-0.11); LYMPHOCYTES 7.9 %; LYMPHOCYTES ABSOLUTE 1.54 10/3/uL (0.67-4.30); MEAN CORPUS HGB CONC 35.1 g/dL (32.0-36.0); MEAN CORPUSCULAR HEMOGLOB 30.2 pg (26.0-34.0); MEAN CORPUSCULAR VOLUME 86.1 fL (80-100); MEAN PLATELET VOLUME 10.9 fL (9.2-13.0); MONOCYTES 2.5 %; MONOCYTES ABSOLUTE 0.48 10/3/uL (0.21-1.20); NEUTROPHILS 86.9 %; NEUTROPHILS ABSOLUTE 16.95 10/3/uL (2.02-8.40); NUCLEATED RED BLOOD CELLS 0.4 /100WBC (0-0); PLATELET COUNT 116 10/3/uL (150-400); RBC DISTRIBUTION WIDTH 14.4 % (12.0-16.0)
[2016-10-23 03:47] LABS: BUN (BLOOD UREA NITROGEN) 52 MG/DL (6-23); CALCIUM, SERUM 7.6 MG/DL (8.5-10.4); CHLORIDE, SERUM 113 MMOL/L (96-112); CO2 (CARBON DIOXIDE) 14 MMOL/L (24-34); CREATININE 1.48 MG/DL (0.55-1.02); GFR AFRICAN AMERICAN 37 ML/MIN (>=60); GFR NON AFRICAN AMERICAN 32 ML/MIN (>=60); GLUCOSE, SERUM 142 MG/DL (60-99); POTASSIUM, SERUM 4.5 MMOL/L (3.5-5.3); SODIUM, SERUM 142 MMOL/L (135-148)
[2016-10-23 03:50] LABS: HEMOGLOBIN 11.5 g/dL (12.0-16.0); RED CELL COUNT 3.81 10/6/uL (4.0-5.6); WHITE BLOOD CELLS 19.5 10/3/uL (4.5-10.5)
[2016-10-23 03:51] LABS: HEMATOCRIT 32.6 % (36.0-48.0); MANUAL DIFF NO %
[2016-10-23 10:36] LABS: HEMATOCRIT 32.3 % (36.0-48.0); HEMOGLOBIN 11.5 g/dL (12.0-16.0)
[2016-10-23 10:44] LABS: POTASSIUM, SERUM 4.1 MMOL/L (3.5-5.3)
[2016-10-23 18:42] LABS: HEMATOCRIT 26.9 % (36.0-48.0); HEMOGLOBIN 9.8 g/dL (12.0-16.0)
[2016-10-23 20:45] LABS: HEMATOCRIT 27.9 % (36.0-48.0)
[2016-10-24 03:43] LABS: HEMATOCRIT 28.4 % (36.0-48.0); MEAN CORPUS HGB CONC 35.2 g/dL (32.0-36.0); MEAN CORPUSCULAR HEMOGLOB 30.1 pg (26.0-34.0); MEAN CORPUSCULAR VOLUME 85.5 fL (80-100); MEAN PLATELET VOLUME 10.2 fL (9.2-13.0); PLATELET COUNT 127 10/3/uL (150-400); RBC DISTRIBUTION WIDTH 16.8 % (12.0-16.0); RED CELL COUNT 3.32 10/6/uL (4.0-5.6); WHITE BLOOD CELLS 18.8 10/3/uL (4.5-10.5)
[2016-10-24 03:47] LABS: MANUAL DIFF YES %
[2016-10-24 03:57] LABS: BUN (BLOOD UREA NITROGEN) 52 MG/DL (6-23); CALCIUM, SERUM 7.9 MG/DL (8.5-10.4); CHLORIDE, SERUM 113 MMOL/L (96-112); CREATININE 1.51 MG/DL (0.55-1.02); GFR AFRICAN AMERICAN 36 ML/MIN (>=60); GFR NON AFRICAN AMERICAN 31 ML/MIN (>=60); POTASSIUM, SERUM 3.7 MMOL/L (3.5-5.3); SODIUM, SERUM 144 MMOL/L (135-148)
[2016-10-24 03:58] LABS: CO2 (CARBON DIOXIDE) 20 MMOL/L (24-34); GLUCOSE, SERUM 106 MG/DL (60-99); PHOSPHORUS, SERUM 3.7 MG/DL (2.5-4.5)
[2016-10-24 04:18] LABS: BAND NEUTROPHILS 5 %; EOSINOPHILS 2 %; EOSINOPHILS ABSOLUTE (CALC) 0.38 10/3/uL (0.0-0.53); IMMATURE GRANS ABSOLUTE (CALC) 0.19 10/3/uL (0.0-0.11); LYMPHOCYTES 3 %; LYMPHOCYTES ABSOLUTE (CALC) 0.56 10/3/uL (0.67-4.30); METAMYELOCYTES 1 %; MONOCYTES 1 %; MONOCYTES ABSOLUTE (CALC) 0.19 10/3/uL (0.21-1.20); NEUTROPHILS ABSOLUTE (CALC) 17.48 10/3/uL (2.02-8.40); SEGMENTED NEUTROPHIL (0) 88 %; TOTAL NUCLEATED CELLS 100
[2016-10-24 04:19] LABS: ANISOCYTOSIS 1+ (5-10/OIF) (0-5/OIF); PLATELET ESTIMATE SLT DEC (ADEQUATE); POLYCHROMASIA 1+ (2-5/OIF) (0-1/OIF)
[2016-10-24 04:20] LABS: GIANT PLATELET OCC
[2016-10-25 04:19] LABS: BASOPHILS 0.2 %; BASOPHILS ABSOLUTE 0.02 10/3/uL (0.0-0.16); EOSINOPHILS 3.7 %; EOSINOPHILS ABSOLUTE 0.47 10/3/uL (0.0-0.53); HEMATOCRIT 25.9 % (36.0-48.0); HEMOGLOBIN 8.8 g/dL (12.0-16.0); IMMATURE GRANULOCYTES 1.1 %; IMMATURE GRANULOCYTES ABSOLUTE 0.14 10/3/uL (0.0-0.11); LYMPHOCYTES 6.9 %; LYMPHOCYTES ABSOLUTE 0.88 10/3/uL (0.67-4.30); MEAN CORPUSCULAR HEMOGLOB 30.4 pg (26.0-34.0); MEAN PLATELET VOLUME 10.4 fL (9.2-13.0); MONOCYTES 2.6 %; MONOCYTES ABSOLUTE 0.33 10/3/uL (0.21-1.20); NEUTROPHILS 85.5 %; NEUTROPHILS ABSOLUTE 10.93 10/3/uL (2.02-8.40); NUCLEATED RED BLOOD CELLS 0.9 /100WBC (0-0); PLATELET COUNT 125 10/3/uL (150-400); RBC DISTRIBUTION WIDTH 17.4 % (12.0-16.0); RED CELL COUNT 2.89 10/6/uL (4.0-5.6); WHITE BLOOD CELLS 12.8 10/3/uL (4.5-10.5)
[2016-10-25 04:20] LABS: MANUAL DIFF NO %; MEAN CORPUSCULAR VOLUME 89.6 fL (80-100)
[2016-10-25 04:29] LABS: CALCIUM, SERUM 7.8 MG/DL (8.5-10.4); CHLORIDE, SERUM 114 MMOL/L (96-112); CO2 (CARBON DIOXIDE) 19 MMOL/L (24-34); CREATININE 1.23 MG/DL (0.55-1.02); GFR AFRICAN AMERICAN 46 ML/MIN (>=60); GFR NON AFRICAN AMERICAN 40 ML/MIN (>=60); GLUCOSE, SERUM 88 MG/DL (60-99); SODIUM, SERUM 143 MMOL/L (135-148)
[2016-10-25 04:42] LABS: ALBUMIN 1.7 G/DL (3.5-5.0); BUN (BLOOD UREA NITROGEN) 40 MG/DL (6-23); PHOSPHORUS, SERUM 2.4 MG/DL (2.5-4.5)
[2016-10-26 04:06] LABS: BASOPHILS 0.2 %; BASOPHILS ABSOLUTE 0.03 10/3/uL (0.0-0.16); EOSINOPHILS 3.5 %; EOSINOPHILS ABSOLUTE 0.42 10/3/uL (0.0-0.53); HEMATOCRIT 25.6 % (36.0-48.0); HEMOGLOBIN 8.6 g/dL (12.0-16.0); IMMATURE GRANULOCYTES 1.2 %; IMMATURE GRANULOCYTES ABSOLUTE 0.15 10/3/uL (0.0-0.11); LYMPHOCYTES 9.7 %; LYMPHOCYTES ABSOLUTE 1.18 10/3/uL (0.67-4.30); MEAN CORPUS HGB CONC 33.6 g/dL (32.0-36.0); MEAN CORPUSCULAR HEMOGLOB 30.3 pg (26.0-34.0); MEAN CORPUSCULAR VOLUME 90.1 fL (80-100); MEAN PLATELET VOLUME 10.4 fL (9.2-13.0); MONOCYTES 5.5 %; MONOCYTES ABSOLUTE 0.67 10/3/uL (0.21-1.20); NEUTROPHILS 79.9 %; NEUTROPHILS ABSOLUTE 9.66 10/3/uL (2.02-8.40); PLATELET COUNT 129 10/3/uL (150-400); RBC DISTRIBUTION WIDTH 17.9 % (12.0-16.0); RED CELL COUNT 2.84 10/6/uL (4.0-5.6); WHITE BLOOD CELLS 12.1 10/3/uL (4.5-10.5)
[2016-10-26 04:12] LABS: ALBUMIN 1.7 G/DL (3.5-5.0); CALCIUM, SERUM 7.4 MG/DL (8.5-10.4); CHLORIDE, SERUM 111 MMOL/L (96-112); CO2 (CARBON DIOXIDE) 21 MMOL/L (24-34); CREATININE 1.26 MG/DL (0.55-1.02); GFR AFRICAN AMERICAN 45 ML/MIN (>=60); GFR NON AFRICAN AMERICAN 39 ML/MIN (>=60); GLUCOSE, SERUM 100 MG/DL (60-99); MANUAL DIFF NO %; PHOSPHORUS, SERUM 2.1 MG/DL (2.5-4.5); POTASSIUM, SERUM 3.7 MMOL/L (3.5-5.3); SODIUM, SERUM 142 MMOL/L (135-148)
[2016-10-26 04:15] LABS: BUN (BLOOD UREA NITROGEN) 34 MG/DL (6-23)
[2016-10-26 17:29] LABS: ALBUMIN 1.6 G/DL (3.5-5.0); BUN (BLOOD UREA NITROGEN) 33 MG/DL (6-23); CALCIUM, SERUM 7.4 MG/DL (8.5-10.4); CHLORIDE, SERUM 108 MMOL/L (96-112); CO2 (CARBON DIOXIDE) 21 MMOL/L (24-34); CREATININE 1.25 MG/DL (0.55-1.02); GFR AFRICAN AMERICAN 45 ML/MIN (>=60); GFR NON AFRICAN AMERICAN 39 ML/MIN (>=60); POTASSIUM, SERUM 3.9 MMOL/L (3.5-5.3); SODIUM, SERUM 139 MMOL/L (135-148)
[2016-10-26 17:33] LABS: GLUCOSE, SERUM 130 MG/DL (60-99); PHOSPHORUS, SERUM 3.4 MG/DL (2.5-4.5)
[2016-10-27 04:34] LABS: BASOPHILS 0.4 %; BASOPHILS ABSOLUTE 0.04 10/3/uL (0.0-0.16); EOSINOPHILS ABSOLUTE 0.42 10/3/uL (0.0-0.53); HEMATOCRIT 24.6 % (36.0-48.0); HEMOGLOBIN 8.3 g/dL (12.0-16.0); IMMATURE GRANULOCYTES 1.3 %; IMMATURE GRANULOCYTES ABSOLUTE 0.13 10/3/uL (0.0-0.11); LYMPHOCYTES 11.7 %; LYMPHOCYTES ABSOLUTE 1.22 10/3/uL (0.67-4.30); MEAN CORPUS HGB CONC 33.7 g/dL (32.0-36.0); MEAN CORPUSCULAR HEMOGLOB 30.4 pg (26.0-34.0); MEAN CORPUSCULAR VOLUME 90.1 fL (80-100); MEAN PLATELET VOLUME 10.3 fL (9.2-13.0); MONOCYTES ABSOLUTE 0.73 10/3/uL (0.21-1.20); NEUTROPHILS 75.6 %; NEUTROPHILS ABSOLUTE 7.86 10/3/uL (2.02-8.40); PLATELET COUNT 141 10/3/uL (150-400); RBC DISTRIBUTION WIDTH 17.7 % (12.0-16.0); RED CELL COUNT 2.73 10/6/uL (4.0-5.6); WHITE BLOOD CELLS 10.4 10/3/uL (4.5-10.5)
[2016-10-27 04:35] LABS: MANUAL DIFF NO %
[2016-10-27 04:56] LABS: ALBUMIN 1.6 G/DL (3.5-5.0); BUN (BLOOD UREA NITROGEN) 30 MG/DL (6-23); CALCIUM, SERUM 7.7 MG/DL (8.5-10.4); CHLORIDE, SERUM 107 MMOL/L (96-112); CO2 (CARBON DIOXIDE) 22 MMOL/L (24-34); CREATININE 1.19 MG/DL (0.55-1.02); GFR AFRICAN AMERICAN 48 ML/MIN (>=60); GFR NON AFRICAN AMERICAN 41 ML/MIN (>=60); PHOSPHORUS, SERUM 2.6 MG/DL (2.5-4.5); POTASSIUM, SERUM 3.6 MMOL/L (3.5-5.3); SODIUM, SERUM 139 MMOL/L (135-148)
[2016-10-27 05:03] LABS: GLUCOSE, SERUM 102 MG/DL (60-99)
[2016-10-27 13:19] LABS: % IRON SAT 10 % (20-50); FERRITIN 402 NG/ML (8-252); IRON BINDING CAPACITY 158 MCG/DL (225-410); IRON, SERUM 16 MCG/DL (35-150)
[2016-10-28 05:08] LABS: HEMATOCRIT 24.6 % (36.0-48.0); HEMOGLOBIN 8.3 g/dL (12.0-16.0); MANUAL DIFF YES %; MEAN CORPUS HGB CONC 33.7 g/dL (32.0-36.0); MEAN CORPUSCULAR HEMOGLOB 30.4 pg (26.0-34.0); MEAN CORPUSCULAR VOLUME 90.1 fL (80-100); MEAN PLATELET VOLUME 10.2 fL (9.2-13.0); PLATELET COUNT 197 10/3/uL (150-400); RED CELL COUNT 2.73 10/6/uL (4.0-5.6); WHITE BLOOD CELLS 9.4 10/3/uL (4.5-10.5)
[2016-10-28 05:19] LABS: BUN (BLOOD UREA NITROGEN) 28 MG/DL (6-23); CALCIUM, SERUM 7.9 MG/DL (8.5-10.4); CHLORIDE, SERUM 108 MMOL/L (96-112); CO2 (CARBON DIOXIDE) 22 MMOL/L (24-34); CREATININE 1.26 MG/DL (0.55-1.02); GFR AFRICAN AMERICAN 45 ML/MIN (>=60); GFR NON AFRICAN AMERICAN 39 ML/MIN (>=60); GLUCOSE, SERUM 108 MG/DL (60-99); SODIUM, SERUM 139 MMOL/L (135-148)
[2016-10-28 05:25] LABS: BAND NEUTROPHILS 2 %; EOSINOPHILS 7 %; EOSINOPHILS ABSOLUTE (CALC) 0.66 10/3/uL (0.0-0.53); LYMPHOCYTES 23 %; LYMPHOCYTES ABSOLUTE (CALC) 2.16 10/3/uL (0.67-4.30); MONOCYTES 3 %; MONOCYTES ABSOLUTE (CALC) 0.28 10/3/uL (0.21-1.20); SEGMENTED NEUTROPHIL (0) 65 %; TOTAL NUCLEATED CELLS 100
[2016-10-28 05:26] LABS: ANISOCYTOSIS 1+ (5-10/OIF) (0-5/OIF); PLATELET ESTIMATE ADQ (ADEQUATE)
[2017-01-27] MEDS ORDERED: LOVENOX40 SC (14:20)
[2017-01-27] MEDS ORDERED: NYS500UDL PO (14:21)
[2017-01-27] MEDS ORDERED: [UNRECOGNIZED DRUG - OTHER] TOP (14:23)
[2017-01-27] MEDS ORDERED: VANCO500 IV (14:24)
[2017-01-27] MEDS ORDERED: 8 HOUR650 MG PO (14:28)
[2017-01-27] MEDS ORDERED: MAALOX MAX PO (14:29)
[2017-01-27] MEDS ORDERED: NORV10 PO (14:30)
[2017-01-27] MEDS ORDERED: BEN25UDL PO (14:31)
[2017-01-27] MEDS ORDERED: KEPPRA250 PO (14:32)
[2017-01-27] MEDS ORDERED: KEPPRA500 PO (14:32)
[2017-01-27] MEDS ORDERED: MELA3 PO (14:33)
[2017-01-27] MEDS ORDERED: MOMUD PO (14:33)
[2017-01-27] MEDS ORDERED: MACROBID PO (14:34)
[2017-01-27] MEDS ORDERED: B1100 PO (14:35)
== END 2016-10-28 18:03 | DRG 356 ==
LOC: ER 16:34 → 7NO 20:11 → CVICU 10-22 16:12 → 7NO 10-26 13:56
PROVIDERS: Emergency Medicine; Family Medicine; Internal Medicine; Internal Medicine Critical Care Medicine; Internal Medicine Gastroenterology; Internal Medicine Pulmonary Disease; Nurse Practitioner Acute Care; Student in an Organized Health Care Education/Training Program
PROC: 02HV33Z Insertion of Infusion Device into Superior Vena Cava, Percutaneous Approach (ICD-10-PCS; 2016-10-16)
PROC: 4A02X4A Measurement of Cardiac Electrical Activity, Guidance, External Approach (ICD-10-PCS; 2016-10-16)
PROC: 0DJ08ZZ Inspection of Upper Intestinal Tract, Via Natural or Artificial Opening Endoscopic (ICD-10-PCS; principal; 2016-10-17 15:58)
PROC: 0W3P8ZZ Control Bleeding in Gastrointestinal Tract, Via Natural or Artificial Opening Endoscopic (ICD-10-PCS; 2016-10-19)
PROC: 3E0G8GC Introduction of Other Therapeutic Substance into Upper GI, Via Natural or Artificial Opening Endoscopic (ICD-10-PCS; 2016-10-19)
PROC: 04L33DZ Occlusion of Hepatic Artery with Intraluminal Device, Percutaneous Approach (ICD-10-PCS; 2016-10-22)
PROC: 30233N1 Transfusion of Nonautologous Red Blood Cells into Peripheral Vein, Percutaneous Approach (ICD-10-PCS; 2016-10-22)
PROC: B41B1ZZ Fluoroscopy of Other Intra-Abdominal Arteries using Low Osmolar Contrast (ICD-10-PCS; 2016-10-22)
PROC: B4141ZZ Fluoroscopy of Superior Mesenteric Artery using Low Osmolar Contrast (ICD-10-PCS; 2016-10-22)
DX: K26.4 Chronic or unspecified duodenal ulcer with hemorrhage (principal); R57.1 Hypovolemic shock; N17.9 Acute kidney failure, unspecified; E87.2 Acidosis; E44.0 Moderate protein-calorie malnutrition; D62 Acute posthemorrhagic anemia; N39.0 Urinary tract infection, site not specified; I45.10 Unspecified right bundle-branch block; I25.10 Atherosclerotic heart disease of native coronary artery without angina pectoris; K21.9 Gastro-esophageal reflux disease without esophagitis; E05.00 Thyrotoxicosis with diffuse goiter without thyrotoxic crisis or storm; Z95.1 Presence of aortocoronary bypass graft; Z88.0 Allergy status to penicillin; Z88.5 Allergy status to narcotic agent; Z88.8 Allergy status to other drugs, medicaments and biological substances; Z91.041 Radiographic dye allergy status; Z79.899 Other long term (current) drug therapy; Z79.82 Long term (current) use of aspirin; Z85.3 Personal history of malignant neoplasm of breast; Z68.27 Body mass index [BMI] 27.0-27.9, adult; E87.5 Hyperkalemia; Z86.19 Personal history of other infectious and parasitic diseases
CPT/HCPCS: 36245; 36247; 36415; 36430; 36569; 37244; 71010; 74176; 75726; 75774; 80048; 80053; 80069; 81001; 82150; 82270; 82570; 82728; 82962; 83540; 83550; 83605; 83690; 83735; 83880; 84100; 84132; 84145; 84300; 84443; 84484; 85014; 85018; 85025; 85610; 85730; 86677; 86850; 86870; 86900; 86901; 86902; 86920; 86922; 87045; 87046; 87046-59; 87086; 87328; 87329; 87449; 87899; 87899-59; 89055; 93005; 96365; 96366; 97110-GP; 97116-GP; 97162-GP; 97164-GP; 99152; 99153; 99285; A9270-GY; C1751; C1769; C1887; C1894; C9113; G0463; G0480; G8978-CK-GP; G8978-CN-GP; G8979-CJ-GP; J0330; J0610; J1940; J1956; J2250; J2370; J2405; J2550; J2710; J2930; P9016; Q9967

== ENCOUNTER 2017-01-11 13:21 | Inpatient (IN) | payer MEDICARE, OTHER ==
--- NOTE | ~2017-01-11 | DS ---
Discharge Summary [address] [place]. [address] NAME: PATRICIA CLARK : 30 STATUS : DIS IN PAT#: [id number] AGE: 86 ADM/REG DATE : 01/13/17 MR#: [id number] REPORT SERV DATE: 01/20/17 DICTATED BY: KIRK CRUMP DATE: 01/19/17 REPORT STATUS : Draft TRANSCRIBED BY: BILLY DATE: 01/19/17 ADMISSION DATE: 01/13/2017 DISCHARGE DATE: 01/19/2017 DISCHARGE DIAGNOSES: 1. Acute encephalopathy, now resolved. 2. Recurrence clostridium difficile colitis. 3. Seizure disorder. 4. Transient ischemic attack .. 5. Hypertension. 6. Chronic kidney disease, stage 3. 7. Hyperlipidemia. INVASIVE PROCEDURE: None. CONSULTATION: Neurology. DISCHARGE CONDITION: Stable. HISTORY OF PRESENT ILLNESS: For detailed HPI, please make reference to Dr. Delbert Ruth's dictation on 01/12/2017. In brief, this is an 86-year-old female with medical history of coronary artery disease, hypertension, who presented to the emergency department with complaints of dizziness, vertigo, nausea, and persistent generalized weakness of about 10 days duration. In the ER, temperature was 98.4, pulse rate was 76, respiratory rate 16, saturating 96% on room air, blood pressure was 179/74. Neurology exam: She was alert and oriented x3. Cranial nerves II through XII was intact. Gait was not assessed. Cerebellar function was noted to be intact. Strength in all extremities with 5/5 but noted was not lateral beating nystagmus with lateral gaze deviation. An assessment of vertigo to rule out a cerebrovascular accident involving the posterior circulation was made in the ER. The patient was admitted to the Hospitalist Service. HOSPITAL COURSE: 1. Acute encephalopathy. The patient was noted to have progressive worsening confusion state in the hospital. CT scan of the brain showed no acute cerebrovascular accident, but noted was moderate generalized atrophy with extensive deep white matter changes. The patient was started on empiric treatment with meclizine but continued to have worsening confusion. The patient's vertigo and dizziness subsequently resolved with a trial of meclizine, however, the patient continued to have progressive worsening confusion state. Neurology was consulted. Recommended an MRI/MRA of the brain. No acute infarction was identified but noted was moderate cerebral and cerebellar atrophy with pronounced perivascular leukoencephalopathy. During the course of this admission, the patient was noted to have had an acute episode of slurred speech with persistence staring into space with confusion which clinical presentation was in keeping with a seizure. An EEG was done, however, did not identify any focal epileptic discharge. Discharge Summary [address] [place]. [address] NAME: PATRICIA CLARK : 30 STATUS : DIS IN PAT#: [id number] AGE: 86 ADM/REG DATE : 01/13/17 MR#: [id number] REPORT SERV DATE: 01/20/17 DICTATED BY: KIRK CRUMP DATE: 01/19/17 REPORT STATUS : Draft TRANSCRIBED BY: BILLY DATE: 01/19/17 Neurology recommended an empiric trial of Keppra. The patient tolerated Keppra without any further episodes of confusion, slurred speech, or staring into space. The patient's acute encephalopathy subsequently improved and resolved. 2. TIA. It was noted that during this admission, the patient had slurred speech. MRI did not show any acute infarction. The patient per neurology may have had a TIA which may explain the patient's slurred speech that was noted during this admission, however, these TIA would not explain the intermittent confusion and staring into space, so in addition to the TIA, the diagnosis of possible seizure disorder was also entertained during this admission. The patient was initially started on aspirin and statin for TIA, however, the patient's family recounted that the patient has had prior history of severe duodenal bleed that required embolization, hence aspirin was discontinued per family's wishes. The patient was advised to continue statin. 3. Recurrent acute Clostridium difficile colitis. During the course of this admission, the patient was noted to have develop persistent loose stools. C. Diff test was performed was positive for C. Diff toxin. The patient was started on vancomycin p.o. The patient's diarrhea subsequently improved. At the time of discharge, the patient's diarrhea was almost resolved. The patient was advised to continue vancomycin to complete a total of 14 days therapy and hence given recurrent infections, so also continue with vancomycin taper at the time of discharge. DISCHARGE DISPOSTION: [facility]. DISCHARGE MEDICATION: 1. Amlodipine 10 mg p.o. daily. 2. Lipitor 80 mg p.o. daily. 3. Keppra 250 mg p.o. b.i.d. 4. Cozaar 50 mg p.o. with supper. 5. Bystolic 20 mg p.o. with breakfast. 6. Protonix 40 mg p.o. daily. 7. Vancomycin 125 mg p.o. every six hours. 8. Artificial Tears 1 eye drop daily. DISCHARGE ACTIVITIES: As tolerated. Greater than 35 minutes was used to prepare this patient's discharge, reconcile medication, and advise the patient on discharge plans and followup. DICTATED BY: MD GAVIN GarciasO/BILLY Kirk Crump MD Discharge Summary [address] [address] NAME: PATRICIA CLARK : 30 STATUS : DIS IN PAT#: [id number] AGE: 86 ADM/REG DATE : 01/13/17 MR#: [id number] REPORT SERV DATE: 01/20/17 DICTATED BY: KIRK CRUMP DATE: 01/19/17 REPORT STATUS : Draft TRANSCRIBED BY: MODL DATE: 01/19/17 / [id number] CC: MD Rubén Garcias M.D.
--- NOTE | ~2017-01-11 | EEG ---
Electroencephalogram [facility] [address] [place]. [address] NAME: PATRICIA CLARK : 30 STATUS : ADM IN PAT#: [id number] AGE: 86 ADM/REG DATE : 01/13/17 MR#: [id number] REPORT SERV DATE: 01/16/17 DICTATED BY: DATE: REPORT STATUS : Draft TRANSCRIBED BY: MODL DATE: 01/16/17 CLINICAL INDICATIONS: Dysarthria, recurring encephalopathy. DESCRIPTION: This EEG was performed using 10/20 electrode placement system. During the EEG study, symmetric background activity was noted with predominant occipital rhythm of roughly 9-10 hertz. Photic stimulation was performed with appropriate driving response. Hyperventilation was not performed secondary to the patient's age and medical conditions. During EEG study, patient achieved drowsy state. No focal abnormalities, seizure activity, or seizure discharge was otherwise noted during the EEG evaluation. INTERPRETATION: This EEG study obtained during awake and drowsy state may be considered within normal limits. No focal abnormalities, seizure activity, seizure discharge was otherwise noted. Of note, normal EEG does not preclude the diagnosis of seizure disorder. Clinical correlation is recommended. [facility]/MODL Angel Mcnair MD / [id number] CC: Bradford Guajardo Jr, MD Kent Grotefendt, M.D.
--- NOTE | ~2017-01-11 | CN ---
Consultation Report [facility] [address] [place]. [address] NAME: PATRICIA CLARK : 30 STATUS : ADM IN PAT#: [id number] AGE: 86 ADM/REG DATE : 01/13/17 MR#: [id number] REPORT SERV DATE: 01/13/17 DICTATED BY: DATE: REPORT STATUS : Draft TRANSCRIBED BY: MODL DATE: 01/13/17 NEUROLOGY CONSULTATION DATE OF CONSULTATION: 01/13/2017 REASON FOR CONSULT: Encephalopathy. HISTORY OF PRESENT ILLNESS: This is an 86-year-old female who was admitted to the hospital on 01/11/2017, secondary to vertigo-type of sensation. The patient, since the hospitalization, was noted to have MRI scan which was negative for stroke, with that the patient reports symptom resolution. Currently, she does not have any symptom. On the evening of 01/12/2017, the patient was noted to be very encephalopathic, was noted to have incoherent language. Also does not appear to have any focal weakness or numbness. The patient subsequently received her nightly dose of Restoril and fell asleep. The patient noted to be mildly obtunded and had some difficulty to be aroused, which has subsequently improved. The patient's repeat CT scan secondary to encephalopathy was otherwise negative. The patient's family reports the patient does complain of dizzy type of sensation over the past two weeks with the patient noted to have apparent confusion as well as memory difficulties over the past two weeks. The patient does have a recent illness, for which the patient was hospitalized in September 2016. At that time, the patient was noted to have significant GI bleed which required multiple attempts to stop. The patient received multiple blood transfusion during that time and afterwards was discharged to inpatient rehab. While in inpatient rehab, the patient was noted to have significant difficulties with delusional thoughts and subsequently with discharge home. The patient up on returning to home, immediately was noted to have improvement of mentation, which lasted for about two weeks before recurrence of confusion. The patient's family reports an intermittent mild memory difficulties without significant impairing of baseline functional ability since the fall of 2015. The patient was noted in addition to have the of her in August 2016; otherwise, the patient's family reports the patient has been . During that hospitalization, the patient does not appear to have received many doses of her medication. The patient has not had her scheduled Restoril on the night of her hospital admission on 01/11/2017. Otherwise, no recent change in medication was noted over the past two to three weeks. The patient was noted to have some decreased appetite, otherwise no other complaints. The patient also complains of a skin itching at night, but does not appear to have any kind of scratch lopez or any rashes that the family can appreciate. The patient otherwise over the past two to three weeks also has developed some shaking in her bilateral upper extremity, but no other recent illness or fever, chills, nausea, vomiting, chest pain, or shortness of breath was otherwise reported. PAST MEDICAL HISTORY: The patient's past medical history is significant for history of recent GI bleed in September 2016. Apparently, required multiple blood transfusions. Recently discharged to rehab, with that the patient noted to have encephalopathy episode while at the rehab. The patient was also noted to have a history of coronary artery disease, status post coronary artery bypass surgery; gastroesophageal reflux disease as well as a C. difficile Consultation Report [address] [place]. [address] NAME: PATRICIA CLARK : 30 STATUS : ADM IN [facility]#: [id number] AGE: 86 ADM/REG DATE : 01/13/17 MR#: [id number] REPORT SERV DATE: 01/13/17 DICTATED BY: DATE: REPORT STATUS : Draft TRANSCRIBED BY: MODL DATE: 01/13/17 colitis. In the past, hypertension, depression, breast cancer, and history of right bundle- branch block. The patient does also have rectus abdominal wall hematoma with history of Graves' disease and osteoarthritis. ALLERGIES: THE PATIENT WAS NOTED TO HAVE ALLERGIES TO IV CONTRAST, PENICILLIN, CODEINE, TRAMADOL WELL LINEZOLID. HOME MEDICATIONS: The patient's home medications consist of Artificial Tears, Lomotil, losartan, Lotemax, Bystolic, Protonix, and Restoril. SOCIAL HISTORY: Denies tobacco, alcohol, or recreational drug usage. FAMILY HISTORY: Significant for uterine cancer and coronary artery disease. REVIEW OF SYSTEMS: With review of systems being negative except for those mentioned in the HPI. PHYSICAL EXAMINATION: VITAL SIGNS: The patient overnight was noted to have vital signs with T-max of 98.5, heart rate of 67 to 89, respirations of 14 to 24, and blood pressure of 118 to 200 over 59 to 88. GENERAL: The patient is well developed and well nourished, in no acute distress. CARDIOVASCULAR EXAMINATION: Regular rate and rhythm. No carotid bruits are otherwise auscultated. PULMONARY EXAMINATION: Clear to auscultation bilaterally. NEUROLOGICAL EXAMINATION: Generally, the patient is alert, oriented to person, place, year, and mildly confused regarding the month. The patient was not noted to have intact registration, recall 2/3 items. The patient is able to follow simple and 2-step commands. No significant dysarthria or aphasia was noted at time of evaluation. Mild decreased attention span was noted at time of evaluation. Cranial nerves II through XII, pupils are equal, round, and reactive to light. Extraocular eye movement with some mild nystagmus was seen at time of evaluation, was noted to have intact blink to threat response. Symmetrical facial expression and sensation. Midline tongue. Normal palatal movement. The patient was noted to have decreased hearing, left ear worse than the right at the time of evaluation. The patient was noted to have decreased range of motion in bilateral shoulders, left greater than right, with that patient's family reports left upper extremity appeared to be weaker compared to the right. Otherwise, the patient demonstrated 4/5 right upper extremity strength and 4-/5 left upper extremity strength. Mild posture as well as action tremor was noted in bilateral upper extremity with that the patient noted to have increased muscle tone and possible rigidity in bilateral upper extremities. Normal [id number] examination on right upper extremity. Mild dysmetria in the left upper extremity. The patient otherwise demonstrated 4/5 bilateral lower extremity strength at the time of evaluation. She was reported to have symmetrical sensation bilaterally. Deep tendon reflex was otherwise noted to be 1+ throughout. Gait was not evaluated according to family members. The patient since her recent hospitalization at times required a cane as well as walker for ambulating. Consultation Report [id number] [place]. [address] NAME: PATRICIA CLARK : 30 STATUS : ADM IN [facility]#: [id number] AGE: 86 ADM/REG DATE : 01/13/17 MR#: [id number] REPORT SERV DATE: 01/13/17 DICTATED BY: DATE: REPORT STATUS : Draft TRANSCRIBED BY: MODL DATE: 01/13/17 LABORATORY STUDIES: The patient's laboratory study demonstrated white blood cell count of 10.2, hemoglobin of 10.9, hematocrit of 33.1, and platelet count of 255. Chemistry panel: Sodium 140, potassium 3.1, chloride of 105, bicarb 25, BUN of 19, creatinine of 1.08, glucose of 97, calcium of 8.9, serum cholesterol of 209, HDL 48, LDL of 130, and triglyceride of 158. Hemoglobin A1c of 5.6. Serum TSH was 0.849. Serum free T4 of 1.53. Folate level of 25.4 and vitamin B12 level of 390. The patient was noted to have MRI scan without contrast performed on 01/11/2017, which was reviewed and demonstrated no acute process, generalized atrophy as well as white matter diseases was seen. CT scan of the brain performed today was also reviewed which again demonstrated white matter diseases as well as generalized atrophy. IMPRESSION: Encephalopathy with the patient noted to have confusion episode overnight, improved today. The patient prior to the hospitalization was noted to have mild episodic memory difficulties since the fall of 2015 with recent hospital admission in September 2016, for GI bleed and discharge to rehab. While at rehab, the patient was noted to have significant confusion that has improved since discharge to home, question of a delirium, mild cognitive deficits. We will discontinue Antivert and place the patient on thiamine 100 mg p.o. daily. Discussed with the hospitalist regarding family's concern regarding holding off on Restoril. Hospitalist would like to hold off on Restoril secondary to patient's lethargy during the morning. Hospitalist is going to seek alternative medication for the patient's insomnia at night. Otherwise, we will repeat MRI of the brain. Discussed with the family member regarding possible LP. RECOMMENDATION: 1. MRI of the brain without contrast. 2. Thiamine 100 mg p.o. daily. 3. Discontinue Antivert. 4. The family to discuss about options of lumbar puncture. [facility]/MODL Angel Mcnair MD / [id number] CC: Kirk Robins MD Consultation Report [address] [place] [address] NAME: PATRICIA CLARK : 30 STATUS : ADM IN PAT#: [id number] AGE: 86 ADM/REG DATE : 01/13/17 MR#: [id number] REPORT SERV DATE: 01/13/17 DICTATED BY: DATE: REPORT STATUS : Draft TRANSCRIBED BY: MODL DATE: 01/13/17 Rubén Wheat M.D.
--- NOTE | ~2017-01-11 | HP ---
History And Physical [facility] [address] [place]. [address] NAME: PATRICIA BACON : 30 STATUS : ADM Lulu PAT#: [id number] AGE: 86 ADM/REG DATE : 01/11/17 MR#: [id number] REPORT SERV DATE: 01/12/17 DICTATED BY: ANNI SANTAMARIA DATE: 01/11/17 REPORT STATUS : Draft TRANSCRIBED BY: BILLY DATE: 01/11/17 DATE OF ADMISSION: 01/11/2017 POINT OF ENTRY: [facility] Emergency Department. CHIEF COMPLAINT: Dizziness, vertigo, and nausea. HISTORY OF PRESENT ILLNESS: Ms. Bacon is an 86-year-old female with a history of coronary artery disease, hypertension, Graves disease, as well as recent admission for significant GI bleed, who presents to emergency department today with a week to week and a half history of dizziness, vertigo, and associated nausea. The patient states that her symptoms began about a week and a half ago, primarily described as dizziness. She denies room spinning sensation, but states that she feels as if she is the one that is spinning. She denies any hearing loss, tinnitus, ear pressure, or vision changes. Does report occasional episodes of nausea with dizziness and spinning. She states that this has really impacted her ability to walk over the past two days as well. She has seen her primary, Dr. Wheat, who prescribed meclizine; however, she has not filled it nor has she taken any at home to see if this helps. She denies any vision changes, dysphagia, dysarthria, focal areas of weakness, numbness, or tingling. Son, who is at bedside, states that he feels as if he has noted some mental dullness and possible slowing, which she first attributed to some hydroxyzine recently prescribed to her; however, she has not had any hydroxyzine for the past few days and has still noted this. They deny any recent fevers, night sweats, chills, chest pain, palpitations, shortness of breath, cough, sputum production, abdominal pain, constipation, dysuria, lower extremity edema, melena, hematochezia, hemoptysis, or hematemesis. She has chronic diarrhea in addition to the above-mentioned nausea. COMPREHENSIVE REVIEW OF SYSTEMS: Otherwise negative unless listed in history of present illness. Initial evaluation in the emergency department is notable for a CT scan of the brain that is negative for acute stroke. Labs are otherwise unremarkable. Urinalysis was clear. She was subsequently admitted to the Hospitalist Service for further evaluation and management. PREVIOUS MEDICAL HISTORY: 1. Coronary artery disease with prior coronary artery bypass grafting. 2. Gastroesophageal reflux disease. 3. 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 4. Hypertension. 5. Depression. 6. History of breast cancer, status post bilateral mastectomy. 7. History of right bundle-branch block. 8. History of gastrointestinal bleed requiring embolization of branches of the PDA. 9. Rectus abdominal wall hematoma. History And Physical [address] [address] NAME: PATRICIA BACON : 30 STATUS : ADM Lulu PAT#: [id number] AGE: 86 ADM/REG DATE : 01/11/17 MR#: [id number] REPORT SERV DATE: 01/12/17 DICTATED BY: ANNI SANTAMARIA DATE: 01/11/17 REPORT STATUS : Draft TRANSCRIBED BY: BILLY DATE: 01/11/17 10.Graves disease. 11.Osteoarthritis. SURGICAL HISTORY: 1. Subtotal colectomy and ileostomy with subsequent reversal. 2. Coronary artery bypass graft. 3. Cholecystectomy. 4. Bilateral mastectomies. 5. Right knee surgery. 6. Right ankle surgery for trauma. ALLERGIES: ARE TO IV CONTRAST, PENICILLIN, CODEINE, TRAMADOL, AND LINEZOLID. HOME MEDICATIONS: 1. Artificial tears b.i.d. 2. Lomotil 2.5 mg four times daily. 3. Losartan 50 mg daily. 4. Lotemax b.i.d. both eyes. 5. Bystolic 20 mg daily. 6. Protonix 40 mg b.i.d. 7. Temazepam 15 mg q.h.s. SOCIAL HISTORY: Denies any tobacco, alcohol, or illicits. FAMILY MEDICAL HISTORY: Mother with uterine cancer. Father with coronary artery disease. She is an only child. LABS AND IMAGIN. White count is 6.8, hemoglobin is 10.3, hematocrit is 31.0, platelet count is 225. INR is 1.1. 2. Sodium is 145, potassium 3.8, chloride 108, carbon dioxide 28, BUN 18, creatinine 1.27. Glucose is 109, calcium is 9.4, protein is 6.1, albumin is 3.3, bilirubin is 0.6, ALT is 22, AST 28, alkaline phosphatase is 93. 3. Urinalysis, specific gravity was 1.014, no evidence of any infection. Her troponin is 0.03. 4. EKG per my review shows normal sinus rhythm with a right bundle-branch block, which is chronic with no evidence of any acute ischemic infarction. Does have some inferior T- wave inversion, which appears chronic based on prior EKGs. 5. CT scan of the brain shows moderate generalized atrophy and deep white matter changes, but no evidence of any acute intracranial abnormality. CT scan of the brain is notable for sphenoid sinus secretions with some air bubbles of unclear significance. 6. Chest x-ray per my review shows no evidence of acute cardiopulmonary abnormality. PHYSICAL EXAMINATION: VITAL SIGNS: Temperature is 98.4 degrees Fahrenheit, pulse is 76, respirations 15, saturating 96% on room air, blood pressure 179/74. On recheck, pulse is 81, blood pressure 190/91. History And Physical [address] [address] NAME: PATRICIA BACON : 30 STATUS : ADM Lulu PAT#: [id number] AGE: 86 ADM/REG DATE : 01/11/17 MR#: [id number] REPORT SERV DATE: 01/12/17 DICTATED BY: ANNI SANTAMARIA DATE: 01/11/17 REPORT STATUS : Draft TRANSCRIBED BY: BILLY DATE: 01/11/17 GENERAL: The patient is awake, alert, and in no acute distress, resting comfortably in bed. She is a well-developed, well-nourished elderly female. Her family is at bedside. HEENT: Atraumatic and normocephalic. Moist mucous membranes. Pupils are equal, round, reactive to light and accommodation. Extraocular eye movements intact. No scleral icterus. NECK: No jugular venous distention. No carotid bruits. CARDIAC: Regular rate and rhythm. No murmurs, rubs, or gallops. Normal S1, S2. LUNGS: Clear to auscultation bilaterally. No wheezes, rhonchi, or rales. ABDOMEN: Soft, nontender, nondistended. Good bowel sounds. No rebound, guarding, or rigidity. EXTREMITIES: Warm and well perfused. No cyanosis, clubbing, or edema. SKIN: Warm and dry. PSYCH: Affect appropriate. NEURO: Alert and oriented x3. Cranial nerves 2 through 12 grossly intact. Speech is normal. Gait is not assessed. Cerebellar function intact with [id number] as well as strength is generally 5/5 bilateral upper and lower extremities. The patient did have some mild lateral beating nystagmus with lateral gaze deviation. ASSESSMENT AND PLAN: Ms. Bacon is an 86-year-old female, who presents with a week to a week and a half history of dizziness, vertigo, as well as nausea, concerning for possible benign paroxysmal positional vertigo versus possible cerebrovascular accident involving the posterior circulation. PROBLEM LIST: 1. Dizziness and vertigo. 2. Possible posterior circulation cerebrovascular accident. 3. Confusion and mental slowness. 4. Sphenoid sinus secretions with air bubbles. 5. Hypertension. 6. Coronary artery disease. PLAN: 1. Vertigo and dizziness concerning for BPPV versus posterior circulation cerebrovascular accident. I suspect this is all due to BPPV versus possible central vertigo. However, one must consider possibility of posterior circulation cerebrovascular accident. We will place the patient on some scheduled low-dose meclizine to see if this helps. Consult Physical Therapy for evaluation as well as vestibular rehab exercises as well as check an MRI MRA in the morning to rule out posterior circulation cerebrovascular accident. I am going to hold off on aspirin at this time given her history of recent GI bleed. Should she obviously should have evidence of a stroke, we will start her on aspirin. 2. Mental slowness and confusion. I do not appreciate any obvious abnormality at this time, but we will check some studies such as thyroid function studies, ammonia level, and vitamin B12. Hold sedating medications as much as possible. 3. Sphenoid sinus secretions with air bubbles, unclear etiology or significance. We will consult Otolaryngology to review films. 4. Hypertension. Continue the patient's home medications. IV hydralazine p.r.n. for elevated blood pressure. History And Physical [address] [place]. [address] NAME: PATRICIA BACON : 30 STATUS : ADM Lulu PAT#: [id number] AGE: 86 ADM/REG DATE : 01/11/17 MR#: [id number] REPORT SERV DATE: 01/12/17 DICTATED BY: ANNI SANTAMARIA DATE: 01/11/17 REPORT STATUS : Draft TRANSCRIBED BY: BILLY DATE: 01/11/17 5. DVT prophylaxis. Lovenox subcu. CODE STATUS: The patient wished to be full code. JCB/BILLY Anni Santamaria MD / [id number] CC: MD Rubén Garcias M.D.
--- NOTE | ~2017-01-11 | IDS ---
Interim Discharge Summary [facility] [address] [place]. [address] NAME: PATRICIA CLARK : 30 STATUS : ADM IN [facility]#: [id number] AGE: 86 ADM/REG DATE : 01/13/17 MR#: [id number] REPORT SERV DATE: 01/16/17 DICTATED BY: JR. GUAJARDO WILLIAM JOHN DATE: 01/16/17 REPORT STATUS : Draft TRANSCRIBED BY: MODDelroy DATE: 01/16/17 ADMISSION DATE: 01/13/2017 DISCHARGE DATE: WORKING DIAGNOSES: 1. Encephalopathy. 2. History of sphenoid sinus abnormality. 3. Hypertension. 4. Chronic kidney disease, stage III. 5. Hyperlipidemia. 6. C. diff status post colectomy remotely. OPERATIONS, PROCEDURES, AND TREATMENTS: Include: 1. CT of the brain done 01/11/2017 which showed moderate generalized atrophy with extensive old white matter changes. There were some secretions in the sphenoid sinus, which were unusual. 2. Chest x-ray done 01/11/2017, which showed mild bibasilar atelectasis. Otherwise, no acute findings. 3. MRA of the head which showed moderate cerebral and cerebellar atrophy with pronounced periventricular leukoencephalopathy. There was no acute infarction. There was sphenoid sinus opacification with chronic periosteal thickening of left maxillary sinus with normal MRA of the [place]. 4. MRA of the neck which was normal. 5. MRI of the brain done 01/11/2017 see above description. 6. Repeat CT of the brain done 01/13/2017, which showed moderate cerebral and cerebellar atrophy with advanced periventricular with leukoencephalomalacia and intracranial atherosclerosis. 7. Repeat MRI of the brain done 01/13/2017, which showed progressive periventricular white matter demyelination since 2010 with sparing of the corpus callosum possibly representing demyelination disease or progressive microvascular ischemic demyelination. There was some left maxillary and right sphenoid sinus with fluid in the left mastoid. 8. Lumbar puncture done 01/15/2017 with fluid analysis showing no white blood cells, one red blood cell with Gram stain showing no organisms. Culture, no growth to date. Crypto antigen was negative. 9. C. diff by PCR done 01/13/2017 was positive. 10.Stool studies showed negative Giardia and negative crypto. Negative white blood cells. 11.Urine culture showed no growth at one day. MEDICATIONS: Please see list. HOSPITAL COURSE: The patient is an 86-year-old female who presented to emergency room with complaint of dizziness, vertigo, and nausea. The patient's symptoms began about 10 days prior described as dizziness with a vertiginous quality. She denied any hearing loss, tinnitus, ear pressure, or vision changes. Occasionally had nausea with dizziness. It had really impacted her ability to walk. Please Interim Discharge Summary [address] [address] NAME: PATRICIA CLARK : 30 STATUS : ADM IN PAT#: [id number] AGE: 86 ADM/REG DATE : 01/13/17 MR#: [id number] REPORT SERV DATE: 01/16/17 DICTATED BY: JR. GUAJARDO WILLIAM JOHN DATE: 01/16/17 REPORT STATUS : Draft TRANSCRIBED BY: BILLY DATE: 01/16/[address] Ruth's excellent dictated history and physical for a complete description. The patient was admitted to the hospital for dizziness and vertigo with worrisome for posterior circulation cerebral vascular accident. She was seen in consultation by Neurology, Dr. Mcnair's, and underwent MRI of the brain, MRA of the neck and head with findings as above. The patient intermittently had episodes of sudden mental status change. She actually had a code stroke called. MRI x2 were negative for stroke. The patient underwent a lumbar puncture which was unremarkable and is currently awaiting an EEG. The patient's confusional episodes may warrant a 24-hour EEG. Regarding C. diff, the patient had a remote colectomy for C. diff. She did test positive again and had some diarrhea. She is placed on oral vancomycin. Regarding her sinus disease, she was seen by Ear, Nose, and Throat. Recommendation was to follow up in 3-4 weeks as an outpatient for an audiogram. For today's exam and laboratory, please see my daily progress note. My partner Dr. Robins will assume care in the morning. WJF/BILLY Bradford Guajardo Jr, MD / [id number] CC: Bradford Guajardo Jr, MD Kent Grotefendt, M.D.
[2017-01-11 13:02] LABS: BASOPHILS 0.7 %; BASOPHILS ABSOLUTE 0.05 10/3/uL (0.0-0.16); EOSINOPHILS 3.4 %; EOSINOPHILS ABSOLUTE 0.23 10/3/uL (0.0-0.53); ER CBC TAT 0 Hrs 05 Mins; IMMATURE GRANULOCYTES 0.3 %; IMMATURE GRANULOCYTES ABSOLUTE 0.02 10/3/uL (0.0-0.11); LYMPHOCYTES 25.8 %; LYMPHOCYTES ABSOLUTE 1.75 10/3/uL (0.67-4.30); MEAN CORPUS HGB CONC 33.2 g/dL (32.0-36.0); MEAN CORPUSCULAR HEMOGLOB 31.1 pg (26.0-34.0); MEAN PLATELET VOLUME 10.3 fL (9.2-13.0); MONOCYTES 10.5 %; MONOCYTES ABSOLUTE 0.71 10/3/uL (0.21-1.20); NEUTROPHILS 59.3 %; NEUTROPHILS ABSOLUTE 4.03 10/3/uL (2.02-8.40); PLATELET COUNT 225 10/3/uL (150-400); WHITE BLOOD CELLS 6.8 10/3/uL (4.5-10.5)
[2017-01-11 13:03] LABS: HEMOGLOBIN 10.3 g/dL (12.0-16.0); MANUAL DIFF NO %; MEAN CORPUSCULAR VOLUME 93.7 fL (80-100); RBC DISTRIBUTION WIDTH 13.8 % (12.0-16.0); RED CELL COUNT 3.31 10/6/uL (4.0-5.6)
[2017-01-11 13:09] LABS: INTERNATIONAL NORMAL RATI 1.1 UNITS (-)
[2017-01-11 13:10] LABS: PROTIME (NOT ORD) 13.9 SEC (12.0-14.5)
[2017-01-11 13:17] LABS: A/G RATIO 1.2 (0.7-1.9); ALBUMIN 3.3 G/DL (3.5-5.0); BUN (BLOOD UREA NITROGEN) 18 MG/DL (6-23); CALCIUM, SERUM 9.4 MG/DL (8.5-10.4); CHLORIDE, SERUM 108 MMOL/L (96-112); CREATININE 1.27 MG/DL (0.55-1.02); GFR AFRICAN AMERICAN 44 ML/MIN (>=60); GFR NON AFRICAN AMERICAN 38 ML/MIN (>=60); GLOBULIN 2.8 G/DL (2.5-4.1); GLUCOSE, SERUM 109 MG/DL (60-99); POTASSIUM, SERUM 3.8 MMOL/L (3.5-5.3); SGOT(AST) 28 U/L (5-40); SGPT(ALT) 22 U/L (5-65); SODIUM, SERUM 145 MMOL/L (135-148); TOTAL BILIRUBIN 0.6 MG/DL (0-1.2); TOTAL PROTEIN 6.1 G/DL (6.0-8.5); TROPONIN I 0.03 NG/ML (<0.05)
[2017-01-11 13:18] LABS: ALKALINE PHOSPHATASE 93 U/L (45-117); CO2 (CARBON DIOXIDE) 28 MMOL/L (24-34)
[2017-01-11 14:31] LABS: ASCORBIC ACID (UR NOT ORDER) NEG (NEG); BILIRUBIN, URINE NEGATIVE (NEG); ER URINALYSIS TAT 0 Hrs 24 Mins; KETONE, URINE NEGATIVE (NEG); LEUKOCYTE ESTERASE(NOT OR NEG (NEG); NITRITE (URINE) NEG (NEG); WBC (NOT ORDERED) (RFLEX) 1 (0-5)
[2017-01-11] MEDS ORDERED: REST15 PO (19:01)
[2017-01-11] MEDS ORDERED: COZ50 PO (19:01)
[2017-01-11] MEDS ORDERED: PROTONIX PO (19:01)
[2017-01-11] MEDS ORDERED: BYSTOLIC20 MG PO (19:01)
[2017-01-11] MEDS ORDERED: LOM PO (19:02)
[2017-01-11] MEDS ORDERED: TEARS PURE OPH (19:08)
[2017-01-11] MEDS ORDERED: LOTEMAX OPH SUSP5 ML OPH (19:08)
[2017-01-11 23:27] LABS: CPK 47 U/L (0-200); HDL CHOLESTEROL 50 MG/DL (> 49); TRIGLYCERIDE 170 MG/DL (< 150); TROPONIN I 0.04 NG/ML (<0.05)
[2017-01-11 23:28] LABS: CHOL/HDL RATIO(NOT ORDER) 4.3 (0-5); CHOLESTEROL 216 MG/DL (< 200); CK-MB 1.7 NG/ML; LDL CHOLESTEROL 132 MG/DL (< 130); NON-HDL CHOLESTEROL 166 MG/DL (< 160); ULTRASENSITIVE TSH 0.823 MCIU/ML (0.358-3.740)
[2017-01-12 06:14] LABS: CPK 50 U/L (0-200); TROPONIN I 0.04 NG/ML (<0.05)
[2017-01-12 06:15] LABS: CK-MB 1.9 NG/ML
[2017-01-12 06:48] LABS: CHOL/HDL RATIO(NOT ORDER) 4.4 (0-5); FOLATE 25.4 NG/ML (>5.2); FREE T4 1.53 NG/DL (0.76-1.46); ULTRASENSITIVE TSH 0.849 MCIU/ML (0.358-3.740)
[2017-01-12 07:42] LABS: GLYCOHEMOGLOBIN (HbA1c) 5.6 % (4.7-6.1)
[2017-01-13 07:57] LABS: BASOPHILS 0.4 %; BASOPHILS ABSOLUTE 0.04 10/3/uL (0.0-0.16); EOSINOPHILS 1.5 %; EOSINOPHILS ABSOLUTE 0.15 10/3/uL (0.0-0.53); HEMATOCRIT 33.1 % (36.0-48.0); HEMOGLOBIN 10.9 g/dL (12.0-16.0); IMMATURE GRANULOCYTES 0.2 %; IMMATURE GRANULOCYTES ABSOLUTE 0.02 10/3/uL (0.0-0.11); LYMPHOCYTES 14.8 %; LYMPHOCYTES ABSOLUTE 1.51 10/3/uL (0.67-4.30); MEAN CORPUS HGB CONC 32.9 g/dL (32.0-36.0); MEAN CORPUSCULAR HEMOGLOB 30.9 pg (26.0-34.0); MEAN CORPUSCULAR VOLUME 93.8 fL (80-100); MEAN PLATELET VOLUME 10.6 fL (9.2-13.0); MONOCYTES 9.2 %; MONOCYTES ABSOLUTE 0.94 10/3/uL (0.21-1.20); NEUTROPHILS 73.9 %; NEUTROPHILS ABSOLUTE 7.55 10/3/uL (2.02-8.40); PLATELET COUNT 255 10/3/uL (150-400); RBC DISTRIBUTION WIDTH 14.1 % (12.0-16.0); RED CELL COUNT 3.53 10/6/uL (4.0-5.6)
[2017-01-13 08:00] LABS: MANUAL DIFF NO %; WHITE BLOOD CELLS 10.2 10/3/uL (4.5-10.5)
[2017-01-13 08:16] LABS: ALBUMIN 3.1 G/DL (3.5-5.0); ALKALINE PHOSPHATASE 93 U/L (45-117); BUN (BLOOD UREA NITROGEN) 19 MG/DL (6-23); CALCIUM, SERUM 8.9 MG/DL (8.5-10.4); CHLORIDE, SERUM 105 MMOL/L (96-112); CO2 (CARBON DIOXIDE) 25 MMOL/L (24-34); CREATININE 1.08 MG/DL (0.55-1.02); GFR AFRICAN AMERICAN 54 ML/MIN (>=60); GFR NON AFRICAN AMERICAN 46 ML/MIN (>=60); GLUCOSE, SERUM 97 MG/DL (60-99); POTASSIUM, SERUM 3.1 MMOL/L (3.5-5.3); SGOT(AST) 27 U/L (5-40); SGPT(ALT) 17 U/L (5-65); SODIUM, SERUM 140 MMOL/L (135-148); TOTAL PROTEIN 6.1 G/DL (6.0-8.5)
[2017-01-13 15:25] LABS: BASOPHILS 0.5 %; BASOPHILS ABSOLUTE 0.05 10/3/uL (0.0-0.16); EOSINOPHILS 2.2 %; EOSINOPHILS ABSOLUTE 0.23 10/3/uL (0.0-0.53); IMMATURE GRANULOCYTES 0.2 %; IMMATURE GRANULOCYTES ABSOLUTE 0.02 10/3/uL (0.0-0.11); LYMPHOCYTES 16.6 %; LYMPHOCYTES ABSOLUTE 1.71 10/3/uL (0.67-4.30); MANUAL DIFF NO %; MEAN CORPUS HGB CONC 32.4 g/dL (32.0-36.0); MEAN CORPUSCULAR HEMOGLOB 30.5 pg (26.0-34.0); MEAN CORPUSCULAR VOLUME 94.2 fL (80-100); MEAN PLATELET VOLUME 10.6 fL (9.2-13.0); MONOCYTES 9.3 %; MONOCYTES ABSOLUTE 0.96 10/3/uL (0.21-1.20); NEUTROPHILS 71.2 %; NEUTROPHILS ABSOLUTE 7.32 10/3/uL (2.02-8.40); PLATELET COUNT 264 10/3/uL (150-400); RED CELL COUNT 3.61 10/6/uL (4.0-5.6); WHITE BLOOD CELLS 10.3 10/3/uL (4.5-10.5)
[2017-01-13 15:37] LABS: INTERNATIONAL NORMAL RATI 1.1 UNITS (-); PROTIME (NOT ORD) 13.7 SEC (12.0-14.5)
[2017-01-13 15:43] LABS: A/G RATIO 1.1 (0.7-1.9); ALBUMIN 3.2 G/DL (3.5-5.0); ALKALINE PHOSPHATASE 100 U/L (45-117); BUN (BLOOD UREA NITROGEN) 21 MG/DL (6-23); CALCIUM, SERUM 8.5 MG/DL (8.5-10.4); CHLORIDE, SERUM 107 MMOL/L (96-112); CO2 (CARBON DIOXIDE) 26 MMOL/L (24-34); CREATININE 1.21 MG/DL (0.55-1.02); GFR AFRICAN AMERICAN 47 ML/MIN (>=60); GFR NON AFRICAN AMERICAN 40 ML/MIN (>=60); GLUCOSE, SERUM 127 MG/DL (60-99); POTASSIUM, SERUM 3.9 MMOL/L (3.5-5.3); SGOT(AST) 24 U/L (5-40); SGPT(ALT) 19 U/L (5-65); SODIUM, SERUM 140 MMOL/L (135-148); TOTAL BILIRUBIN 0.9 MG/DL (0-1.2); TOTAL PROTEIN 6.2 G/DL (6.0-8.5)
[2017-01-14 07:32] LABS: BUN (BLOOD UREA NITROGEN) 20 MG/DL (6-23); CALCIUM, SERUM 8.6 MG/DL (8.5-10.4); CHLORIDE, SERUM 108 MMOL/L (96-112); CO2 (CARBON DIOXIDE) 23 MMOL/L (24-34); GFR AFRICAN AMERICAN 47 ML/MIN (>=60); GFR NON AFRICAN AMERICAN 41 ML/MIN (>=60); GLUCOSE, SERUM 111 MG/DL (60-99); POTASSIUM, SERUM 3.7 MMOL/L (3.5-5.3); SODIUM, SERUM 139 MMOL/L (135-148)
[2017-01-15 08:35] LABS: BASOPHILS 0.4 %; BASOPHILS ABSOLUTE 0.03 10/3/uL (0.0-0.16); EOSINOPHILS 1.7 %; EOSINOPHILS ABSOLUTE 0.13 10/3/uL (0.0-0.53); HEMATOCRIT 30.6 % (36.0-48.0); IMMATURE GRANULOCYTES 0.3 %; IMMATURE GRANULOCYTES ABSOLUTE 0.02 10/3/uL (0.0-0.11); LYMPHOCYTES 11.2 %; LYMPHOCYTES ABSOLUTE 0.84 10/3/uL (0.67-4.30); MEAN CORPUS HGB CONC 32.7 g/dL (32.0-36.0); MEAN CORPUSCULAR HEMOGLOB 31.2 pg (26.0-34.0); MEAN CORPUSCULAR VOLUME 95.3 fL (80-100); MEAN PLATELET VOLUME 10.1 fL (9.2-13.0); MONOCYTES 10.1 %; MONOCYTES ABSOLUTE 0.76 10/3/uL (0.21-1.20); NEUTROPHILS 76.3 %; NEUTROPHILS ABSOLUTE 5.71 10/3/uL (2.02-8.40); PLATELET COUNT 196 10/3/uL (150-400); RBC DISTRIBUTION WIDTH 13.6 % (12.0-16.0); RED CELL COUNT 3.21 10/6/uL (4.0-5.6); WHITE BLOOD CELLS 7.5 10/3/uL (4.5-10.5)
[2017-01-15 08:36] LABS: MANUAL DIFF NO %
[2017-01-15 08:49] LABS: BUN (BLOOD UREA NITROGEN) 17 MG/DL (6-23); CALCIUM, SERUM 8.4 MG/DL (8.5-10.4); CHLORIDE, SERUM 108 MMOL/L (96-112); CO2 (CARBON DIOXIDE) 19 MMOL/L (24-34); CREATININE 1.11 MG/DL (0.55-1.02); GFR AFRICAN AMERICAN 52 ML/MIN (>=60); GFR NON AFRICAN AMERICAN 45 ML/MIN (>=60); GLUCOSE, SERUM 111 MG/DL (60-99); POTASSIUM, SERUM 3.5 MMOL/L (3.5-5.3); SODIUM, SERUM 136 MMOL/L (135-148)
[2017-01-15 14:43] LABS: GLUCOSE BODY FL (NOT ORD) 57 MG/DL; PROTEIN BODY FLUID 0.1 G/DL
[2017-01-15 14:59] LABS: CSF APPEARANCE (NOT ORD) CLEAR (CLEAR); CSF COLOR (NOT ORD) COLORLESS (COLORLESS); CSF WBC (NOT ORD) 0 /uL (0-10); CSF XANTHROCHROMIA NEG (NEG)
[2017-01-15 15:00] LABS: CSF RBC (NOT ORD) 1 MM3 (NO REFERENCE)
[2017-01-15 20:31] LABS: BD FL SOURCE (NOT ORD) CSF
[2017-01-16 07:58] LABS: BUN (BLOOD UREA NITROGEN) 14 MG/DL (6-23); C-REACTIVE PROTEIN 49.1 MG/L (<8.0); CALCIUM, SERUM 8.5 MG/DL (8.5-10.4); CHLORIDE, SERUM 110 MMOL/L (96-112); CO2 (CARBON DIOXIDE) 18 MMOL/L (24-34); CREATININE 0.98 MG/DL (0.55-1.02); GFR AFRICAN AMERICAN 61 ML/MIN (>=60); GFR NON AFRICAN AMERICAN 52 ML/MIN (>=60); POTASSIUM, SERUM 3.6 MMOL/L (3.5-5.3); SODIUM, SERUM 138 MMOL/L (135-148)
[2017-01-16 07:59] LABS: GLUCOSE, SERUM 83 MG/DL (60-99)
[2017-01-16 08:57] LABS: PROCALCITONIN 0.26 ng/mL (<0.5)
[2017-01-18 06:12] LABS: BASOPHILS 0.4 %; BASOPHILS ABSOLUTE 0.03 10/3/uL (0.0-0.16); EOSINOPHILS 5.2 %; EOSINOPHILS ABSOLUTE 0.41 10/3/uL (0.0-0.53); HEMATOCRIT 29.1 % (36.0-48.0); HEMOGLOBIN 9.6 g/dL (12.0-16.0); IMMATURE GRANULOCYTES 0.5 %; IMMATURE GRANULOCYTES ABSOLUTE 0.04 10/3/uL (0.0-0.11); LYMPHOCYTES 22.6 %; LYMPHOCYTES ABSOLUTE 1.78 10/3/uL (0.67-4.30); MEAN CORPUSCULAR HEMOGLOB 31.3 pg (26.0-34.0); MEAN CORPUSCULAR VOLUME 94.8 fL (80-100); MEAN PLATELET VOLUME 10.9 fL (9.2-13.0); MONOCYTES 10.7 %; MONOCYTES ABSOLUTE 0.84 10/3/uL (0.21-1.20); NEUTROPHILS 60.6 %; NEUTROPHILS ABSOLUTE 4.76 10/3/uL (2.02-8.40); PLATELET COUNT 218 10/3/uL (150-400); RBC DISTRIBUTION WIDTH 13.5 % (12.0-16.0); RED CELL COUNT 3.07 10/6/uL (4.0-5.6); WHITE BLOOD CELLS 7.9 10/3/uL (4.5-10.5)
[2017-01-18 06:13] LABS: MANUAL DIFF NO %
[2017-01-18 06:28] LABS: BUN (BLOOD UREA NITROGEN) 13 MG/DL (6-23); CALCIUM, SERUM 7.8 MG/DL (8.5-10.4); CHLORIDE, SERUM 117 MMOL/L (96-112); CO2 (CARBON DIOXIDE) 16 MMOL/L (24-34); CREATININE 0.98 MG/DL (0.55-1.02); GFR AFRICAN AMERICAN 61 ML/MIN (>=60); GFR NON AFRICAN AMERICAN 52 ML/MIN (>=60); GLUCOSE, SERUM 97 MG/DL (60-99); PHOSPHORUS, SERUM 2.1 MG/DL (2.5-4.5); POTASSIUM, SERUM 3.3 MMOL/L (3.5-5.3); SODIUM, SERUM 142 MMOL/L (135-148)
[2017-01-19 08:47] LABS: BASOPHILS 0.7 %; BASOPHILS ABSOLUTE 0.04 10/3/uL (0.0-0.16); EOSINOPHILS 6.8 %; HEMOGLOBIN 9.1 g/dL (12.0-16.0); IMMATURE GRANULOCYTES 0.5 %; IMMATURE GRANULOCYTES ABSOLUTE 0.03 10/3/uL (0.0-0.11); LYMPHOCYTES 25.9 %; LYMPHOCYTES ABSOLUTE 1.53 10/3/uL (0.67-4.30); MEAN CORPUS HGB CONC 33.7 g/dL (32.0-36.0); MEAN CORPUSCULAR HEMOGLOB 31.8 pg (26.0-34.0); MEAN CORPUSCULAR VOLUME 94.4 fL (80-100); MEAN PLATELET VOLUME 10.6 fL (9.2-13.0); MONOCYTES 9.3 %; MONOCYTES ABSOLUTE 0.55 10/3/uL (0.21-1.20); NEUTROPHILS 56.8 %; NEUTROPHILS ABSOLUTE 3.36 10/3/uL (2.02-8.40); PLATELET COUNT 201 10/3/uL (150-400); RBC DISTRIBUTION WIDTH 13.6 % (12.0-16.0); RED CELL COUNT 2.86 10/6/uL (4.0-5.6); WHITE BLOOD CELLS 5.9 10/3/uL (4.5-10.5)
[2017-01-19 08:48] LABS: MANUAL DIFF NO %
[2017-01-19 09:01] LABS: BUN (BLOOD UREA NITROGEN) 13 MG/DL (6-23); CALCIUM, SERUM 8.3 MG/DL (8.5-10.4); CHLORIDE, SERUM 117 MMOL/L (96-112); CO2 (CARBON DIOXIDE) 17 MMOL/L (24-34); CREATININE 0.97 MG/DL (0.55-1.02); GFR AFRICAN AMERICAN 61 ML/MIN (>=60); GFR NON AFRICAN AMERICAN 53 ML/MIN (>=60); GLUCOSE, SERUM 103 MG/DL (60-99); PHOSPHORUS, SERUM 2.4 MG/DL (2.5-4.5); POTASSIUM, SERUM 3.3 MMOL/L (3.5-5.3); SODIUM, SERUM 143 MMOL/L (135-148)
[2017-01-19 13:50] LABS: HSV DNA TYPE 1 Not Detected (NOTDET); HSV DNA TYPE 2 Not Detected (NOTDET)
[2017-01-27] MEDS ORDERED: LOVENOX40 SC (14:20)
[2017-01-27] MEDS ORDERED: NYS500UDL PO (14:21)
[2017-01-27] MEDS ORDERED: [UNRECOGNIZED DRUG - OTHER] TOP (14:23)
[2017-01-27] MEDS ORDERED: VANCO500 IV (14:24)
[2017-01-27] MEDS ORDERED: 8 HOUR650 MG PO (14:28)
[2017-01-27] MEDS ORDERED: MAALOX MAX PO (14:29)
[2017-01-27] MEDS ORDERED: NORV10 PO (14:30)
[2017-01-27] MEDS ORDERED: BEN25UDL PO (14:31)
[2017-01-27] MEDS ORDERED: KEPPRA250 PO (14:32)
[2017-01-27] MEDS ORDERED: KEPPRA500 PO (14:32)
[2017-01-27] MEDS ORDERED: MOMUD PO (14:33)
[2017-01-27] MEDS ORDERED: MELA3 PO (14:33)
[2017-01-27] MEDS ORDERED: MACROBID PO (14:34)
[2017-01-27] MEDS ORDERED: B1100 PO (14:35)
== END 2017-01-19 14:26 | DRG 371 ==
LOC: ER 13:21 → 1SO 20:04
PROVIDERS: Emergency Medicine; Hospitalist; Internal Medicine; Psychiatry & Neurology Neurology
PROC: 009U3ZZ Drainage of Spinal Canal, Percutaneous Approach (ICD-10-PCS; principal; 2017-01-15)
PROC: B01B1ZZ Fluoroscopy of Spinal Cord using Low Osmolar Contrast (ICD-10-PCS; 2017-01-15)
DX: A04.7 Enterocolitis due to Clostridium difficile (principal); G93.41 Metabolic encephalopathy; G40.209 Localization-related (focal) (partial) symptomatic epilepsy and epileptic syndromes with complex partial seizures, not intractable, without status epilepticus; G45.9 Transient cerebral ischemic attack, unspecified; F03.90 Unspecified dementia, unspecified severity, without behavioral disturbance, psychotic disturbance, mood disturbance, and anxiety; N39.0 Urinary tract infection, site not specified; J98.11 Atelectasis; N18.3 Chronic kidney disease, stage 3 (moderate); F22 Delusional disorders; R47.81 Slurred speech; D64.9 Anemia, unspecified; R47.1 Dysarthria and anarthria; R29.810 Facial weakness; I25.10 Atherosclerotic heart disease of native coronary artery without angina pectoris; I12.9 Hypertensive chronic kidney disease with stage 1 through stage 4 chronic kidney disease, or unspecified chronic kidney disease; M16.12 Unilateral primary osteoarthritis, left hip; E78.5 Hyperlipidemia, unspecified; K21.9 Gastro-esophageal reflux disease without esophagitis; I45.10 Unspecified right bundle-branch block; E05.00 Thyrotoxicosis with diffuse goiter without thyrotoxic crisis or storm; Z79.899 Other long term (current) drug therapy; Z95.1 Presence of aortocoronary bypass graft; Z85.3 Personal history of malignant neoplasm of breast; Z90.13 Acquired absence of bilateral breasts and nipples; Z90.49 Acquired absence of other specified parts of digestive tract; Z91.81 History of falling; Z88.0 Allergy status to penicillin; Z88.8 Allergy status to other drugs, medicaments and biological substances; Z88.5 Allergy status to narcotic agent
CPT/HCPCS: 62270; 70450; 70544; 70548; 70551; 70551-52; 71010; 73521; 77003; 80048; 80053; 80061; 81001; 82140; 82550; 82553; 82607; 82746; 82945; 83036; 83735; 84100; 84145; 84157; 84439; 84443; 84484; 85025; 85610; 85652; 85730; 86140; 87070; 87086; 87102; 87177; 87205; 87209; 87327; 87328; 87329; 87493; 87493-59; 87529; 87529-59; 89051; 89055; 93005; 93306; 95816; 97110-GP; 97162-GP; 97530-GP; 99285; A9270-GY; A9577; G8978-CL-GP; G8979-CJ-GP; J0360; J2405; J3475